=== PATIENT | female | born 1975 | race African-American/Black ===

== ENCOUNTER 2016-08-19 12:50 | Emergency (ER) | payer MEDICARE, MEDICAID ==
--- NOTE | 2016-08-19 13:27 | PHYS DOC ---
Past Medical History Past Medical History: Anxiety, CVA, High Cholesterol, Hypertension, Seizure Additional Past Medical Histor: blood clot in brain with Past Surgical History: Tubal ligation, Other Additional Past Surgical Histo: brain surgery 2002 Alcohol Use: None Drug Use: None Adult General Chief Complaint Chief Complaint: SEIZURE HPI HPI Patient is a 41 year old female who presents status post seizure. Patient is accompanied by her sister, who contributes to history. They both work he other; patient's sister says that she came into her office but was acting unusually and not speaking. She then had a seizure that lasted approximately 30-60 seconds. Sister called EMS. Patient was then postictal. She does have history of seizures, but does not take any antiepileptic medication. Of note, she says that she had been taking clonazepam for stress but ran out 1 month ago. While she was on the clonazepam she did not have any seizures. Patient says she feels generally poor at this time. Review of Systems Review of Systems Constitutional: Fatigue. Denies fever or chills Eyes: Denies change in visual acuity or eye pain HENT: Denies nasal congestion or sore throat Respiratory: Denies cough or shortness of breath Cardiovascular: Denies chest pain GI: Denies abdominal pain, nausea, vomiting, bloody stools or diarrhea : Denies dysuria or hematuria Musculoskeletal: Denies back pain or joint pain Integument: Denies rash or skin lesions Neurologic: Seizure, headache. Denies focal weakness or sensory changes Current Medications Current Medications Current Medications Medications (Trade) Dose Ordered Sig/Laura Start Time Stop Time Status Last Admin Dose Admin Acetaminophen (Tylenol) 1,000 mg 1X ONCE 08/19/16 14:30 08/19/16 14:33 DC 08/19/16 15:13 1,000 MG Lorazepam (Ativan) 1 mg 1X ONCE 08/19/16 13:45 08/19/16 13:46 DC 08/19/16 13:43 1 MG Sodium Chloride (Iv Sodium Chloride 0.9% 1000ml Bag) 1,000 ml @ 1,000 mls/hr 1X ONCE 08/19/16 13:45 08/19/16 14:44 DC 08/19/16 13:42 1,000 MLS/HR Allergies Allergies Allergies Coded Allergies Type Severity Reaction Last Updated Verified metoclopramide Allergy Severe Anaphylaxis 06/11/14 No morphine Allergy Intermediate itching 06/11/14 Yes Physical Exam Physical Exam Constitutional: Well developed, well nourished, no acute distress, non-toxic appearance HENT: Normocephalic, atraumatic, bilateral external ears normal Eyes: PERRL, EOMI, conjunctiva normal, no discharge Neck: Normal range of motion, no stridor Cardiovascular: Tachycardic, regular rhythm, no murmur Lungs & Thorax: Bilateral breath sounds clear to auscultation Abdomen: Bowel sounds normal, soft, non-distended, no TTP Skin: Warm, dry, no erythema, no rash Extremities: No obvious deformity, no edema Neurologic: Alert and oriented X 3, GCS 15, CN II-XII grossly intact, strength intact and symmetrical throughout, sensation to light touch intact throughout, no dystaxia noted Current Patient Data Vital Signs Vital Signs Date Time Temp Pulse Resp B/P Pulse Ox O2 Delivery O2 Flow Rate FiO2 08/19/16 16:15 88 20 127/78 100 08/19/16 15:27 Room Air 08/19/16 12:50 98.4 98.4 Lab Values Laboratory Tests Test 08/19/16 13:15 08/19/16 13:39 Urine Collection Type Unknown Urine Color Red Urine Clarity Cloudy Urine pH 6.0 Urine Specific [place] 1.020 Urine Protein 30mg/dL (NEG-TRACE) Urine Glucose (UA) Negativemg/dL (NEG) Urine Ketones (Stick) 15mg/dL (NEG) Urine Blood Large (NEG) Urine Nitrite Negative (NEG) Urine Bilirubin Negative (NEG) Urine Urobilinogen Dipstick 0.2mg/dL (0.2 mg/dL) Urine Leukocyte Esterase Moderate (NEG) Urine RBC Tntc/HPF (0-2) Urine WBC 5-10/HPF (0-4) Urine Squamous Epithelial Cells Few/LPF Urine Bacteria Moderate/HPF (0-FEW) Urine Mucus Mod/LPF Urine Test Negative (NEG) White Blood Count 6.5x10^3/uL (4.0-11.0) Red Blood Count 4.09x10^6/uL (3.50-5.40) Hemoglobin 11.6g/dL (12.0-15.5) L Hematocrit 36.5% (36.0-47.0) Mean Corpuscular Volume 89fL (79-100) Mean Corpuscular Hemoglobin 28pg (25-35) Mean Corpuscular Hemoglobin Concent 32g/dL (31-37) Red Cell Distribution Width 15.3% (11.5-14.5) H Platelet Count 445x10^3/uL (140-400) H Neutrophils (%) (Auto) 68% (31-73) Lymphocytes (%) (Auto) 25% (24-48) Monocytes (%) (Auto) 5% (0-9) Eosinophils (%) (Auto) 1% (0-3) Basophils (%) (Auto) 1% (0-3) Neutrophils # (Auto) 4.4x10^3uL (1.8-7.7) Lymphocytes # (Auto) 1.7x10^3/uL (1.0-4.8) Monocytes # (Auto) 0.3x10^3/uL (0.0-1.1) Eosinophils # (Auto) 0.1x10^3/uL (0.0-0.7) Basophils # (Auto) 0.1x10^3/uL (0.0-0.2) Sodium Level 140mmol/L (136-145) Potassium Level 3.6mmol/L (3.5-5.1) Chloride Level 102mmol/L (98-107) Carbon Dioxide Level 21mmol/L (21-32) Anion Gap 17 (6-14) H Blood Urea Nitrogen 12mg/dL (7-20) Creatinine 1.0mg/dL (0.6-1.0) Estimated GFR (Cockcroft-Gault) 73.9 Glucose Level 121mg/dL (70-99) H Calcium Level 9.3mg/dL (8.5-10.1) Magnesium Level 2.2mg/dL (1.8-2.4) Laboratory Tests 08/19/16 13:39 Laboratory Tests 08/19/16 13:39 EKG EKG EKG (my read): sinus tachycardia, rate 113, normal axis, no acute ischemic changes Radiology/Procedures Radiology/Procedures CT head: IMPRESSION: Chronic changes. No acute finding. No significant change Course & Med Decision Making Course & Med Decision Making Pertinent Labs and Imaging studies reviewed. (See chart for details) Patient is 41-year-old female who presents status post seizure. Has history of same; may be related to cessation of clonazepam one month ago. Initially post- ictal, mental status continues to improve while in ED. Will check labs, UA, CT head given c/o headache. IVF bolus, dose of ativan ordered. Labs largely unremarkable. UA bloody (patient on menstrual cycle) and has WBCs, few bacteria , leuk esterase; as she does not have any UTI symptoms I will not treat at this time and will instead await culture. CT head results as above. I discussed results with patient and family; patient feeling much improved at this time except for fatigue. Patient discharged home with rx for clonazepam; while she was in the ED her sister obtained an appt with her PCP for Monday. Patient discharged home with instructions for follow up and return precautions. Dragon Disclaimer Dragon Disclaimer This electronic medical record was generated, in whole or in part, using a voice recognition dictation system. Departure Departure Impression: Primary Impression: Seizure Disposition: HOME, SELF-CARE Condition: IMPROVED Referrals: NON,STAFF (PCP) Patient Instructions: Seizure, Adult Additional Instructions: Thank you for allowing us to provide care today in the Emergency Department. Take the provided medication as directed. Use caution when taking this medication as it can make you drowsy. Schedule a follow up appointment with your primary care doctor. Return promptly to the Emergency Department if you develop any new or concerning symptoms. Scripts Clonazepam 0.5 Mg Tablet0.5 Mg PO BID #20 TAB Prov:PAULINE CHAPPELL MD 08/19/16 PAULINE CHAPPELL MD Aug 19, 2016 13:27
--- NOTE | 2016-08-19 13:32 | EKG ---
[facility] [address] [place] [address] Test Date: 2016-08-19 Test Time: 13:15:48 Pat Name: JAQUAN PRYOR Department: Room: Gender: F Rn Medicare: : 1975 Requested By: PAULINE CHAPPELL Order Number: [id number] Reading MD: Delicia Alexander Measurements Intervals [place] Rate: 113 P: -100 FL: 90 QRS: 66 QRSD: 86 T: 33 QT: 350 QTc: 486 Interpretive Statements SINUS TACHYCARDIA OTHERWISE NORMAL ECG Electronically Signed On 08-22-2016 8:46:38 INSTITUTE DIRECTOR by Delicia Alexander
[2016-08-19 13:37] LABS: NEG OBC UR NEG; POS OBC UR POS
[2016-08-19 13:38] LABS: BILIRUBIN,URINE NEGATIVE (NEG); GLUCOSE,URINE NEGATIVE (NEG); NITRITE,URINE NEGATIVE (NEG); PROTEIN,URINE 30 mg/dL (NEG-TRACE); UROBILINOGEN,URINE 0.2 mg/dL (0.2 mg/dL)
[2016-08-19] MEDS ORDERED: LORAZEPAM 2 MG/ML VIAL IV ONE (13:45)
[2016-08-19] MEDS ORDERED: IV NORMAL SALINE 1000ML BAG 1,000 ML IV ONE (13:45)
[2016-08-19 13:47] LABS: BASO # 0.1 x10^3/uL (0.0-0.2); BASO % 1 % (0-3); EOS % 1 % (0-3); HEMATOCRIT 36.5 % (36.0-47.0); HEMOGLOBIN 11.6 g/dL (12.0-15.5); LYMPH # 1.7 x10^3/uL (1.0-4.8); LYMPH % 25 % (24-48); MEAN CORPUSCULAR HEMOGLOBIN 28 pg (25-35); MEAN CORPUSCULAR HGB CONC 32 g/dL (31-37); MEAN CORPUSCULAR VOLUME 89 fL (79-100); MONO % 5 % (0-9); NEUT % 68 % (31-73); PLATELET COUNT 445 x10^3/uL (140-400); RED BLOOD COUNT 4.09 x10^6/uL (3.50-5.40); RED CELL DISTRIBUTION WIDTH 15.3 % (11.5-14.5); WHITE BLOOD COUNT 6.5 x10^3/uL (4.0-11.0)
[2016-08-19 13:54] LABS: BACTERIA,URINE MODERATE /HPF (0-FEW); RBC,URINE TNTC /HPF (0-2); SQUAMOUS EPITHELIAL CELL,UR FEW /LPF
[2016-08-19 14:11] LABS: CALCIUM 9.3 mg/dL (8.5-10.1); GFR 73.9; MAGNESIUM 2.2 mg/dL (1.8-2.4); POTASSIUM 3.6 mmol/L (3.5-5.1)
[2016-08-19] MEDS ORDERED: ACETAMINOPHEN 500 MG TABLET PO ONE (14:30)
--- NOTE | 2016-08-19 15:18 | RAD ---
Indication history of a seizure. Headache. Noncontrast images of the head were obtained. Note is made of a previous examination 06/11/2014. The patient is status post left craniotomy. An acute calvarial finding is not seen. There is an aneurysm clip in the area of the [place] of [place] similar to the previous exam. There is an encephalomalacia area in the left parietal lobe also similar to the prior study. No subdural or epidural hematoma is seen. There is no mass or midline shift. An acute finding is not apparent. A significant change compared to the prior study is not seen. IMPRESSION: Chronic changes. No acute finding. No significant change PQRS Compliance Statement: One or more of the following individualized dose reduction techniques were utilized for this examination: 1. Automated exposure control 2. Adjustment of the mA and/or kV according to patient size 3. Use of iterative reconstruction technique
[2016-08-19] MEDS ORDERED: CLON0.5T3 PO (15:53)
[2016-08-19 16:15] VITALS: BP 127/78
== END 2016-08-19 16:48 | disposition home or self-care (01) ==
LOC: ER 12:50
DX: R56.9 Unspecified convulsions (principal); E78.00 Pure hypercholesterolemia, unspecified; I10 Essential (primary) hypertension; Z86.73 Personal history of transient ischemic attack (TIA), and cerebral infarction without residual deficits; Z88.5 Allergy status to narcotic agent; Z88.8 Allergy status to other drugs, medicaments and biological substances
CPT/HCPCS: 36415; 70450; 80048; 81001; 81025; 83735; 85027; 87086; 93005; 96361; 96374; 99285; J2060; J7030

== ENCOUNTER → 2016-10-06 | Outpatient (CLI) | payer MEDICARE, MEDICAID ==
[~2016-10-06] MED LIST: CLON0.5T3 PO
--- NOTE | 2016-10-12 21:12 | EEG ---
DATE OF SERVICE: 10/06/2016 EEG NUMBER: [id number] OBJECTIVE: This is a 41-year-old -[place] female patient with history of seizure or seizure-like episodes. EEG was requested to evaluate seizure activity. METHODS: Twenty electrodes were applied according to the international 10-20 electrode placement system. EKG monitoring, hyperventilation, intermittent photic stimulation, monopolar and bipolar montages are routinely utilized. The record was obtained on a digital system with video monitoring. FINDINGS: 1. Background: The patient was recorded in awake and drowsy states. No sleep state was recorded. The overall background amplitude is asymmetric higher in the left hemispheric area than the right hemispheric area, and it is about 20-40 microvolts in the left hemispherical area and 10-20 microvolts in the right hemispherical area. A posterior dominant rhythm of 8-10 Hz is observed. 2. Abnormalities: No specific epileptiform discharge or electrographic seizure is seen. No focal or diffuse slowing. 3. Activation: Hyperventilation was performed with good efforts and normal response. Intermittent photic stimulation was performed with photic driving. No specific epileptiform discharge or electrographic seizure induced by hyperventilation or intermittent photic stimulation. IMPRESSION: This EEG falls into the abnormal category of the study for the awake and drowsy states. No sleep state was recorded. The overall background amplitude is asymmetric higher in the left hemispheric area than the right hemispheric area that is in consistent with the patient's history of craniotomy. No specific epileptiform discharge or electrographic seizure is seen. ROSEMARY ESPINOSA MD DR: MARCELA/gaby JOB#: [id number] / [id number] KANDI
== END | disposition home or self-care (01) ==
LOC: RT 07:41
PROVIDERS: ATTEND Psychiatry & Neurology Neurology
DX: R56.9 Unspecified convulsions (principal)
CPT/HCPCS: 95816

== ENCOUNTER 2017-02-18 10:55 | Observation (INO) | payer MEDICARE, MEDICAID ==
[~2017-02-18] VITALS: Ht 157.5 cm; Wt 145.4 kg
--- NOTE | 2017-02-18 11:06 | PHYS DOC ---
Past Medical History Past Medical History: Anxiety, CVA, High Cholesterol, Hypertension, Seizure Additional Past Medical Histor: blood clot in brain with Past Surgical History: Tubal ligation, Other Additional Past Surgical Histo: brain surgery 2002 Alcohol Use: None Drug Use: None Adult General Chief Complaint Chief Complaint: NEURO SYMPTOMS/DEFICITS [facility] HPI Patient is a 41 year old -[place] female who presents with with right-sided facial numbness, right arm and leg numbness and weakness. She states it all started around 5 PM last night. She states been persistent. She also states she's been feeling nauseated and lightheaded and dizzy. She denies any vertigo type symptoms. She states last night she did have some vertigo symptoms but not today. She's also been having some loose stools and had 3 or 4 nonbloody loose stools this morning. She states that she is on 81 mg aspirin a day sure she took it this morning. 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 She also states last year she had a seizure that was related to stress. She states she seen Dr. Dorsey last her for her seizure. She denies any headache, neck stiffness, fever or chills abdominal pain. Review of Systems Review of Systems Constitutional: Denies fever or chills [] Eyes: Denies change in visual acuity, redness, or eye pain [] HENT: Denies nasal congestion or sore throat [] Respiratory: Denies cough or shortness of breath [] Cardiovascular: No additional information not addressed in HPI [] GI: Denies abdominal pain, nausea, vomiting, bloody stools or diarrhea [] : Denies dysuria or hematuria [] Musculoskeletal: Denies back pain or joint pain [] Integument: Denies rash or skin lesions [] Neurologic: Denies headache, positive for right-sided weakness and decreased sensation Endocrine: Denies polyuria or polydipsia [] Current Medications Current Medications Current Medications Medications (Trade) Dose Ordered Sig/Laura Start Time Stop Time Status Last Admin Dose Admin Ondansetron HCl (Zofran) 4 mg 1X ONCE 02/18/17 11:30 02/18/17 11:31 DC 02/18/17 11:57 4 MG Sodium Chloride 1,000 ml @ 1,000 mls/hr 1X ONCE 02/18/17 11:30 02/18/17 12:29 DC 02/18/17 11:57 1,000 MLS/HR Allergies Allergies Allergies Coded Allergies Type Severity Reaction Last Updated Verified metoclopramide Allergy Severe Anaphylaxis 06/11/14 No morphine Allergy Intermediate itching 06/11/14 Yes Physical Exam Physical Exam Constitutional: Well developed, well nourished, no acute distress, non-toxic appearance. [] HENT: Normocephalic, atraumatic, bilateral external ears normal, oropharynx moist, no oral exudates, nose normal. [] Eyes: PERRLA, EOMI, conjunctiva normal, no discharge. [] Neck: Normal range of motion, no tenderness, supple, no stridor. [] Cardiovascular:Heart rate regular rhythm, no murmur [] Lungs & Thorax: Bilateral breath sounds clear to auscultation [] Abdomen: Bowel sounds normal, soft, no tenderness, no masses, no pulsatile masses. [] Skin: Warm, dry, no erythema, no rash. [] Back: No tenderness, no CVA tenderness. [] Extremities: No tenderness, no cyanosis, no clubbing, ROM intact, no edema. [] Neurologic: Alert and oriented X 3, 4-5 strength in the right upper and lower extremity, decreased sensation to the right upper and lower extremity and face Psychologic: Affect normal, judgement normal, mood normal. [] Current Patient Data Vital Signs Vital Signs Date Time Temp Pulse Resp B/P (MAP) Pulse Ox O2 Delivery O2 Flow Rate FiO2 02/18/17 11:05 99.2 114 16 146/85 (105) 98 Room Air 99.2 Lab Values Laboratory Tests Test 02/18/17 11:20 02/18/17 11:42 White Blood Count 5.2 x10^3/uL (4.0-11.0) Red Blood Count 3.88 x10^6/uL (3.50-5.40) Hemoglobin 11.4 g/dL (12.0-15.5) L Hematocrit 33.7 % (36.0-47.0) L Mean Corpuscular Volume 87 fL (79-100) Mean Corpuscular Hemoglobin 29 pg (25-35) Mean Corpuscular Hemoglobin Concent 34 g/dL (31-37) Red Cell Distribution Width 14.0 % (11.5-14.5) Platelet Count 467 x10^3/uL (140-400) H Neutrophils (%) (Auto) 73 % (31-73) Lymphocytes (%) (Auto) 20 % (24-48) L Monocytes (%) (Auto) 6 % (0-9) Eosinophils (%) (Auto) 1 % (0-3) Basophils (%) (Auto) 1 % (0-3) Neutrophils # (Auto) 3.8 x10^3uL (1.8-7.7) Lymphocytes # (Auto) 1.0 x10^3/uL (1.0-4.8) Monocytes # (Auto) 0.3 x10^3/uL (0.0-1.1) Eosinophils # (Auto) 0.0 x10^3/uL (0.0-0.7) Basophils # (Auto) 0.0 x10^3/uL (0.0-0.2) Prothrombin Time 12.8 SEC (11.7-14.0) Prothrombin Time INR 1.0 (0.8-1.1) PTT 29 SEC (24-38) Fibrinogen 346 mg/dL (200-440) Sodium Level 142 mmol/L (136-145) Potassium Level 3.6 mmol/L (3.5-5.1) Chloride Level 106 mmol/L (98-107) Carbon Dioxide Level 27 mmol/L (21-32) Anion Gap 9 (6-14) Blood Urea Nitrogen 14 mg/dL (7-20) Creatinine 0.9 mg/dL (0.6-1.0) Estimated GFR (Cockcroft-Gault) 83.5 Glucose Level 133 mg/dL (70-99) H Calcium Level 8.7 mg/dL (8.5-10.1) Total Bilirubin 0.2 mg/dL (0.2-1.0) Direct Bilirubin 0.1 mg/dL (0.0-0.2) Aspartate Amino Transferase (AST) 17 U/L (15-37) Alanine Aminotransferase (ALT) 22 U/L (14-59) Alkaline Phosphatase 49 U/L (46-116) Total Protein 7.6 g/dL (6.4-8.2) Albumin 3.6 g/dL (3.4-5.0) Glucose (Fingerstick) 115 mg/dL (70-99) H Laboratory Tests 02/18/17 11:20 Laboratory Tests 02/18/17 11:20 EKG EKG EKG shows sinus rhythm with rate of [address] elevations or T-wave inversions appreciated, normal axis, QTC 413 ms, as interpreted by me. Radiology/Procedures Radiology/Procedures [facility] [address] [place] [address] IMAGING REPORT Signed PATIENT: JAQUAN PRYOR ACCOUNT: [id number] : 1975 LOCATION: ER AGE: 41 SEX: F EXAM STATUS: PRE ER ORD. PHYSICIAN: MARGARET DUGAN MD REASON: stroke protocol PROCEDURE: CT CODE STROKE HEAD WO CT head without contrast History: Right-sided numbness, speech difficulty Comparison: 08/19/2016. Procedure: Axial images are obtained of the head from the skull base through the vertex without IV contrast. Findings: Changes of left parietal craniotomy. Aneurysm clip identified in the region of [place] of [place] similar to prior exam. Small focus of encephalomalacia identified in the left parietal lobe similar to prior exam. The ventricles and sulci are normal for the patient's age. No mass-effect, intracranial mass, midline shift, hemorrhage or obvious acute infarction is identified. Basilar cisterns are patent. . The visualized paranasal sinuses appear clear. Impression: 1. No acute intracranial process. ER physician informed at time of dictation. PQRS Compliance Statement: One or more of the following individualized dose reduction techniques were utilized for this examination: 1. Automated exposure control 2. Adjustment of the mA and/or kV according to patient size 3. Use of iterative reconstruction technique faint DICTATED and SIGNED BY: WOO TORRES MD DATE: 02/18/17 1140 CC: MELVA LACY; MARGARET DUGAN MD ~ Impressions: Right arm, leg weakness Right Arm and leg decreased sensation Course & Med Decision Making Course & Med Decision Making Pertinent Labs and Imaging studies reviewed. (See chart for details) CT scan of the head did not show any acute abnormality's. Labs are nonacute. We are waiting a urine at this time. Spoke with Dr. Quiles with neurology and informed him of her symptoms, duration of symptoms since 5 PM, her past medical history, her previous craniotomy and coiling. I have started the patient on 325 aspirin and ordered an MRI of her brain. She's being admitted to Dr. Julian in stable condition at this time. Interim orders have been written. Dragon Disclaimer Dragon Disclaimer This electronic medical record was generated, in whole or in part, using a voice recognition dictation system. Departure Departure Impression: Primary Impression: Right sided weakness Disposition: ADMITTED INPATIENT Admitting Physician: Jose J Julian Condition: STABLE Referrals: MELVA LACY (PCP) MARGARET DUGAN MD Feb 18, 2017 11:06
[2017-02-18] MEDS ORDERED: ONDANSETRON PF 4 MG/2 ML VIAL. IV ONE (11:30)
[2017-02-18] MEDS ORDERED: IV NORMAL SALINE 1000ML BAG 1,000 ML IV ONE (11:30)
[2017-02-18 11:42] LABS: BASO % 1 % (0-3); EOS % 1 % (0-3); HEMATOCRIT 33.7 % (36.0-47.0); HEMOGLOBIN 11.4 g/dL (12.0-15.5); LYMPH % 20 % (24-48); MEAN CORPUSCULAR HEMOGLOBIN 29 pg (25-35); MEAN CORPUSCULAR HGB CONC 34 g/dL (31-37); MEAN CORPUSCULAR VOLUME 87 fL (79-100); MONO % 6 % (0-9); NEUT % 73 % (31-73); PLATELET COUNT 467 x10^3/uL (140-400); RED BLOOD COUNT 3.88 x10^6/uL (3.50-5.40); WHITE BLOOD COUNT 5.2 x10^3/uL (4.0-11.0)
--- NOTE | 2017-02-18 11:42 | EKG ---
[facility] [address] [place] [address] Test Date: 2017-02-18 Test Time: 11:21:25 Pat Name: JAQUAN PRYOR Department: Room: Gender: F Gut Cleaner: : 1975 Requested By: MARGARET DUGAN Order Number: [id number] Reading MD: Measurements Intervals [place] Rate: 99 P: 41 OR: 106 QRS: 47 QRSD: 80 T: 47 QT: 318 QTc: 413 Interpretive Statements SINUS RHYTHM NON SPECIFIC T ABNORMALITY RI6.01 Unconfirmed report No previous ECG available for comparison
--- NOTE | 2017-02-18 11:47 | RAD ---
CT head without contrast History: Right-sided numbness, speech difficulty Comparison: 08/19/2016. Procedure: Axial images are obtained of the head from the skull base through the vertex without IV contrast. Findings: Changes of left parietal craniotomy. Aneurysm clip identified in the region of [place] of [place] similar to prior exam. Small focus of encephalomalacia identified in the left parietal lobe similar to prior exam. The ventricles and sulci are normal for the patient's age. No mass-effect, intracranial mass, midline shift, hemorrhage or obvious acute infarction is identified. Basilar cisterns are patent. . The visualized paranasal sinuses appear clear. Impression: 1. No acute intracranial process. ER physician informed at time of dictation. PQRS Compliance Statement: One or more of the following individualized dose reduction techniques were utilized for this examination: 1. Automated exposure control 2. Adjustment of the mA and/or kV according to patient size 3. Use of iterative reconstruction technique faint
[2017-02-18 11:48] LABS: CALCIUM 8.7 mg/dL (8.5-10.1); CREATININE 0.9 mg/dL (0.6-1.0); GFR 83.5; POTASSIUM 3.6 mmol/L (3.5-5.1)
[2017-02-18 11:54] LABS: ALBUMIN 3.6 g/dL (3.4-5.0); DIRECT BILIRUBIN 0.1 mg/dL (0.0-0.2); TOTAL BILIRUBIN 0.2 mg/dL (0.2-1.0); TOTAL PROTEIN 7.6 g/dL (6.4-8.2)
[2017-02-18 11:58] LABS: PROTHROMBIN TIME PATIENT 12.8 SEC (11.7-14.0)
[2017-02-18] MEDS ORDERED: ONDANSETRON PF 4 MG/2 ML VIAL. IV PRN (12:45)
[2017-02-18] MEDS ORDERED: ASPIRIN 325 MG TABLET PO ONE (12:50)
[2017-02-18] MEDS ORDERED: CLON0.1T TOP (13:34)
[2017-02-18] MEDS ORDERED: FLUO20CA8 PO (13:34)
[2017-02-18] MEDS ORDERED: LISI10TA2 PO (13:34)
[2017-02-18] MEDS ORDERED: ASPI-482 PO (13:34)
[2017-02-18 13:45] VITALS: BP 120/82
--- NOTE | 2017-02-18 15:49 | PDOC2 ---
NEUROLOGY CONSULT Date of Admission Date of Admission DATE: 02/18/17 TIME: 15:40 Reason for consultation New onset right-sided weakness and numbness History of present illness Yolis Thomson is a pleasant 41-year-old woman who had a hemorrhagic stroke 14 years ago with the of her son. This was in the left hemisphere and caused right-sided symptoms which eventually resolved. She reports she had a craniotomy. She also had an aneurysm coil but it sounds like he did not rupture. She is done fairly well in the interim. Yesterday she was driving and became very dizzy. She stopped at [employer]. She felt like she would almost faint. She went into the store and noticed her right side was numb. This lasted all night long. She was nauseated and having a spinning sensation. The numbness persisted today and she was having diarrhea as well. This has not been associated with any fever. Several days ago she woke up feeling like she was having a seizure. She previously was evaluated by Dr. Dorsey, a neurologist, where an EEG was negative. She was placed on levetiracetam but experienced adverse effects with suicidal thoughts so discontinued the medication. It is not clear that these actually had a definite seizure. She describes spells at night rib feels like her eyes are jerky but she is awake during the spell. She's also been experiencing daily headache although does not have much of a headache today. She's had palpitations and then has anxiety attacks. She is been using Klonopin on a daily basis but the anxiety is not controlled. Past medical history 1. Generalized anxiety disorder 2. History of stroke 3. Hyperlipidemia 4. Hypertension 5. Seizure 6. History of blood clot associated with childbirth 7. Tubal ligation 8. Brain surgery 2002 9. Suicidal thoughts associated with taking Keppra Family history Hypertension, high cholesterol, cancer and diabetes run in the family. Social history She has a boyfriend at bedside with him she's been with for 2 months. She has 3 sons age 21 down to 14 years. Her 18-year-old son is preparing to go to college. Her 21-year-old son works and goes to school. She is a lifelong nonsmoker. She drinks occasional glasses of wine. She denies recreational drugs. She does not work and is on disability. Current Medications Current Medications Current Medications Ondansetron HCl (Zofran) 4 mg 1X ONCE IV Last administered on 02/18/17 11:57; Start 02/18/17 at 11:30; Stop 02/18/17 at 11:31; Status DC Sodium Chloride 1,000 ml @ 1,000 mls/hr 1X ONCE IV Last administered on 11:57; Start 02/18/17 at 11:30; Stop 02/18/17 at 12:29; Status DC Ondansetron HCl (Zofran) 4 mg PRN Q8HRS PRN IV NAUSEA/VOMITING; Start 02/18/17 at 12:45; Stop 02/19/17 at 12:44 Aspirin (Mirza Aspirin) 325 mg 1X ONCE PO Last administered on 02/18/17 13:03 ; Start 02/18/17 at 12:50; Stop 02/18/17 at 12:51; Status DC Active Scripts Active Clonazepam 0.5 Mg Tablet 0.5 Mg PO BID Reported Aspir 81 (Aspirin) 81 Mg Tablet.dr 1 Tab PO DAILY Lisinopril 10 Mg Tablet 1 Tab PO DAILY Fluoxetine Hcl 20 Mg Capsule 60 Mg PO DAILY Clonidine Hcl 0.1 Mg Tablet 0.2 Mg TOP CHANGE EVERY MONDAY Allergies Allergies: Coded Allergies: metoclopramide (Unverified Allergy, Severe, Anaphylaxis, 06/11/14) morphine (Verified Allergy, Intermediate, itching, 06/11/14) ROS Review of System She has been experiencing daily headache although does not have a headache today. She's had dizziness. There's been no loss of hearing or vision. She does not have nose or sinus difficulty. She feels she is having trouble getting out her thoughts. She's been able to eat and swallow. She did have diarrhea earlier. She's had some nausea. She has not had shortness of breath, cough or cold. There is no chest or abdominal pain. She does not have any bone or joint pain. She has not had fever or rash. She does not have any genitourinary complaints. She complains of right-sided numbness involving face, arm and leg. She feels her right side is weakened. She has anxiety and panic attacks. She has been under much more stress lately. She does not complain of swelling, bruising or bleeding. Physical Exam Physical Examination She was alert, awake and cooperative. The speech was fluent and clear. She had intermittent difficulty getting out her thoughts but other time she was quite fluent. She had a good fund of recent and remote knowledge. Attention and concentration was intact. She was well-groomed and well-nourished. She was fully oriented. Examination of the cranial nerves revealed visual medrano were full to confrontation. Extraocular movements were intact. The eyes were conjugate. Pursuit movements were smooth and saccadic movements were without dysmetria. The pupils were 4 millimeters and reacted to light. There was no afferent pupillary defect. Funduscopic examination did not reveal papilledema, exudate or hemorrhage. Facial sensation was intact. The muscles of mastication and facial expression were powerful symmetrically. Hearing was intact to finger rub. The palate arch symmetrically and the tongue was midline with full range of motion. Sternocleidomastoid and trapezius were powerful bilaterally. Muscle bulk and tone was normal. There was no arm drift or abnormal movement. The power was full and symmetric in the upper and lower extremities with give way weakness on the right side. The power fluctuated greatly on the right side. Reflexes were 2/4 and symmetric in the upper and lower extremities. The toes were downgoing bilaterally. Coordination testing with finger to nose, heel to maxwell, fine motor and rapid alternating movements was well performed except right [id number] was diminished. The sensory examination was intact to pain, light touch, proprioception, graphesthesia, cold thermal and vibration except for subjective sensory shading on the right. There was no extinction to double simultaneous stimulation. The gait was of a normal base and unsteady walk. She was able to heel, toe, and tandem walk. The Romberg stance was negative. Auscultation of the carotid arteries did not reveal a bruit. Heart rhythm was regular without a murmur. Peripheral pulses are 2/4 at the wrists and feet. There was no edema or cyanosis of the extremities. Vitals VITALS Vital Signs Date Time Temp Pulse Resp B/P (MAP) Pulse Ox O2 Delivery O2 Flow Rate FiO2 02/18/17 15:04 Room Air 02/18/17 13:45 99.9 84 16 120/82 (95) 100 99.9 Labs Labs Laboratory Tests Test 02/18/17 11:20 02/18/17 11:42 White Blood Count 5.2 x10^3/uL (4.0-11.0) Red Blood Count 3.88 x10^6/uL (3.50-5.40) Hemoglobin 11.4 g/dL (12.0-15.5) Hematocrit 33.7 % (36.0-47.0) Mean Corpuscular Volume 87 fL (79-100) Mean Corpuscular Hemoglobin 29 pg (25-35) Mean Corpuscular Hemoglobin Concent 34 g/dL (31-37) Red Cell Distribution Width 14.0 % (11.5-14.5) Platelet Count 467 x10^3/uL (140-400) Neutrophils (%) (Auto) 73 % (31-73) Lymphocytes (%) (Auto) 20 % (24-48) Monocytes (%) (Auto) 6 % (0-9) Eosinophils (%) (Auto) 1 % (0-3) Basophils (%) (Auto) 1 % (0-3) Neutrophils # (Auto) 3.8 x10^3uL (1.8-7.7) Lymphocytes # (Auto) 1.0 x10^3/uL (1.0-4.8) Monocytes # (Auto) 0.3 x10^3/uL (0.0-1.1) Eosinophils # (Auto) 0.0 x10^3/uL (0.0-0.7) Basophils # (Auto) 0.0 x10^3/uL (0.0-0.2) Prothrombin Time 12.8 SEC (11.7-14.0) Prothromb Time International Ratio 1.0 (0.8-1.1) Activated Partial Thromboplast Time 29 SEC (24-38) Fibrinogen 346 mg/dL (200-440) Sodium Level 142 mmol/L (136-145) Potassium Level 3.6 mmol/L (3.5-5.1) Chloride Level 106 mmol/L (98-107) Carbon Dioxide Level 27 mmol/L (21-32) Anion Gap 9 (6-14) Blood Urea Nitrogen 14 mg/dL (7-20) Creatinine 0.9 mg/dL (0.6-1.0) Estimated GFR (Cockcroft-Gault) 83.5 Glucose Level 133 mg/dL (70-99) Calcium Level 8.7 mg/dL (8.5-10.1) Total Bilirubin 0.2 mg/dL (0.2-1.0) Direct Bilirubin 0.1 mg/dL (0.0-0.2) Aspartate Amino Transf (AST/SGOT) 17 U/L (15-37) Alanine Aminotransferase (ALT/SGPT) 22 U/L (14-59) Alkaline Phosphatase 49 U/L (46-116) Total Protein 7.6 g/dL (6.4-8.2) Albumin 3.6 g/dL (3.4-5.0) Glucose (Fingerstick) 115 mg/dL (70-99) Laboratory Tests Test 02/18/17 11:20 02/18/17 11:42 White Blood Count 5.2 x10^3/uL (4.0-11.0) Red Blood Count 3.88 x10^6/uL (3.50-5.40) Hemoglobin 11.4 g/dL (12.0-15.5) Hematocrit 33.7 % (36.0-47.0) Mean Corpuscular Volume 87 fL (79-100) Mean Corpuscular Hemoglobin 29 pg (25-35) Mean Corpuscular Hemoglobin Concent 34 g/dL (31-37) Red Cell Distribution Width 14.0 % (11.5-14.5) Platelet Count 467 x10^3/uL (140-400) Neutrophils (%) (Auto) 73 % (31-73) Lymphocytes (%) (Auto) 20 % (24-48) Monocytes (%) (Auto) 6 % (0-9) Eosinophils (%) (Auto) 1 % (0-3) Basophils (%) (Auto) 1 % (0-3) Neutrophils # (Auto) 3.8 x10^3uL (1.8-7.7) Lymphocytes # (Auto) 1.0 x10^3/uL (1.0-4.8) Monocytes # (Auto) 0.3 x10^3/uL (0.0-1.1) Eosinophils # (Auto) 0.0 x10^3/uL (0.0-0.7) Basophils # (Auto) 0.0 x10^3/uL (0.0-0.2) Prothrombin Time 12.8 SEC (11.7-14.0) Prothromb Time International Ratio 1.0 (0.8-1.1) Activated Partial Thromboplast Time 29 SEC (24-38) Fibrinogen 346 mg/dL (200-440) Sodium Level 142 mmol/L (136-145) Potassium Level 3.6 mmol/L (3.5-5.1) Chloride Level 106 mmol/L (98-107) Carbon Dioxide Level 27 mmol/L (21-32) Anion Gap 9 (6-14) Blood Urea Nitrogen 14 mg/dL (7-20) Creatinine 0.9 mg/dL (0.6-1.0) Estimated GFR (Cockcroft-Gault) 83.5 Glucose Level 133 mg/dL (70-99) Calcium Level 8.7 mg/dL (8.5-10.1) Total Bilirubin 0.2 mg/dL (0.2-1.0) Direct Bilirubin 0.1 mg/dL (0.0-0.2) Aspartate Amino Transf (AST/SGOT) 17 U/L (15-37) Alanine Aminotransferase (ALT/SGPT) 22 U/L (14-59) Alkaline Phosphatase 49 U/L (46-116) Total Protein 7.6 g/dL (6.4-8.2) Albumin 3.6 g/dL (3.4-5.0) Glucose (Fingerstick) 115 mg/dL (70-99) Assessment/Plan Assessment/Plan Ricarda Thomson is a pleasant 41-year-old woman who previously suffered with an intracranial hemorrhage associated with childbirth. It sounds as if she required surgical intervention. She also had coiling of an aneurysm. It does not sound as if the aneurysm actually ever ruptured. I feel the current neurologic symptoms are likely due to stress and not stroke or a new intracranial process. I'm relieved that the CT scan of the head was negative. I will arrange for an MRI of the brain to evaluate for acute stroke as well as an MRA of the intracranial arteries to evaluate for the development of new aneurysm. If these are negative then I would switch the emphasis to treating the anxiety disorder. She may need to work with a psychiatrist as Klonopin and Prozac do not seem to be effective at controlling the symptoms. She may be well served by working with a counselor as well. I will be happy to reevaluate. I appreciate being involved in her care. LINDA MAGALLON MD Feb 18, 2017 15:49
[2017-02-18] MEDS ORDERED: CLON1PAT2 TD (17:05)
[2017-02-18] MEDS: clonazePAM 0.5 MG TABLET PO SCH (17:46)
[2017-02-18] MEDS: LISINOPRIL 10 MG TABLET PO SCH (17:46)
[2017-02-18] MEDS: FLUoxetine HCL 20 MG CAPSULE PO SCH (17:46)
[2017-02-18 19:00] VITALS: BP 125/79
--- NOTE | 2017-02-18 19:49 | PDOC1 ---
History and Physical Date of Admission Date of Admission DATE: 02/18/17 TIME: 19:46 History of Present Illness History of Present Illness Young female with prior h/o CVA after childberth. She has a coil. Now co R weakness. ?New CVA? DW ER doc Reviewed chart and labs and imaging. Pt seen and examined Plan is to admit for neuro consult and possibly more imaging Dictation still broken Total time 34 minutes Past medical history 1. Generalized anxiety disorder 2. History of stroke 3. Hyperlipidemia 4. Hypertension 5. Seizure 6. History of blood clot associated with childbirth 7. Tubal ligation 8. Brain surgery 2002 9. Suicidal thoughts associated with taking Keppra Current Problem List Problem List Problems Medical Problems: (1) Right sided weakness Status: Acute Problems: Current Medications Current Medications Current Medications Ondansetron HCl (Zofran) 4 mg 1X ONCE IV Last administered on 02/18/17 11:57; Start 02/18/17 at 11:30; Stop 02/18/17 at 11:31; Status DC Sodium Chloride 1,000 ml @ 1,000 mls/hr 1X ONCE IV Last administered on 11:57; Start 02/18/17 at 11:30; Stop 02/18/17 at 12:29; Status DC Ondansetron HCl (Zofran) 4 mg PRN Q8HRS PRN IV NAUSEA/VOMITING; Start 02/18/17 at 12:45; Stop 02/19/17 at 12:44 Aspirin (Mirza Aspirin) 325 mg 1X ONCE PO Last administered on 02/18/17 13:03 ; Start 02/18/17 at 12:50; Stop 02/18/17 at 12:51; Status DC Aspirin (Ecotrin) 81 mg DAILY PO ; Start 02/19/17 at 09:00 Clonazepam (KlonoPIN) 0.5 mg BID PO Last administered on 02/18/17 17:46; Start 02/18/17 at 17:30 Fluoxetine HCl (PROzac) 60 mg DAILY PO Last administered on 02/18/17 17:46; Start 02/18/17 at 17:30 Lisinopril (Prinivil) 10 mg DAILY PO Last administered on 02/18/17 17:46; Start 02/18/17 at 17:30 Clonidine HCl (Catapres Tts-2) 1 patch WEEKLY TD ; Start 02/25/17 at 09:00 Active Scripts Active Clonazepam 0.5 Mg Tablet 0.5 Mg PO BID Reported Clonidine Tts-2 (Clonidine) 1 Each Patch.tdwk 1 Patch TD WEEKLY Aspir 81 (Aspirin) 81 Mg Tablet.dr 1 Tab PO DAILY Lisinopril 10 Mg Tablet 1 Tab PO DAILY Fluoxetine Hcl 20 Mg Capsule 60 Mg PO DAILY Allergies Allergies: Coded Allergies: metoclopramide (Unverified Allergy, Severe, Anaphylaxis, 06/11/14) morphine (Verified Allergy, Intermediate, itching, 06/11/14) Vitals Vitals Vital Signs Date Time Temp Pulse Resp B/P (MAP) Pulse Ox O2 Delivery O2 Flow Rate FiO2 02/18/17 17:46 84 120/82 02/18/17 15:04 Room Air 02/18/17 13:45 99.9 16 100 99.9 Labs Labs Laboratory Tests Test 02/18/17 11:20 02/18/17 11:42 White Blood Count 5.2 x10^3/uL (4.0-11.0) Red Blood Count 3.88 x10^6/uL (3.50-5.40) Hemoglobin 11.4 g/dL (12.0-15.5) Hematocrit 33.7 % (36.0-47.0) Mean Corpuscular Volume 87 fL (79-100) Mean Corpuscular Hemoglobin 29 pg (25-35) Mean Corpuscular Hemoglobin Concent 34 g/dL (31-37) Red Cell Distribution Width 14.0 % (11.5-14.5) Platelet Count 467 x10^3/uL (140-400) Neutrophils (%) (Auto) 73 % (31-73) Lymphocytes (%) (Auto) 20 % (24-48) Monocytes (%) (Auto) 6 % (0-9) Eosinophils (%) (Auto) 1 % (0-3) Basophils (%) (Auto) 1 % (0-3) Neutrophils # (Auto) 3.8 x10^3uL (1.8-7.7) Lymphocytes # (Auto) 1.0 x10^3/uL (1.0-4.8) Monocytes # (Auto) 0.3 x10^3/uL (0.0-1.1) Eosinophils # (Auto) 0.0 x10^3/uL (0.0-0.7) Basophils # (Auto) 0.0 x10^3/uL (0.0-0.2) Prothrombin Time 12.8 SEC (11.7-14.0) Prothromb Time International Ratio 1.0 (0.8-1.1) Activated Partial Thromboplast Time 29 SEC (24-38) Fibrinogen 346 mg/dL (200-440) Sodium Level 142 mmol/L (136-145) Potassium Level 3.6 mmol/L (3.5-5.1) Chloride Level 106 mmol/L (98-107) Carbon Dioxide Level 27 mmol/L (21-32) Anion Gap 9 (6-14) Blood Urea Nitrogen 14 mg/dL (7-20) Creatinine 0.9 mg/dL (0.6-1.0) Estimated GFR (Cockcroft-Gault) 83.5 Glucose Level 133 mg/dL (70-99) Calcium Level 8.7 mg/dL (8.5-10.1) Total Bilirubin 0.2 mg/dL (0.2-1.0) Direct Bilirubin 0.1 mg/dL (0.0-0.2) Aspartate Amino Transf (AST/SGOT) 17 U/L (15-37) Alanine Aminotransferase (ALT/SGPT) 22 U/L (14-59) Alkaline Phosphatase 49 U/L (46-116) Total Protein 7.6 g/dL (6.4-8.2) Albumin 3.6 g/dL (3.4-5.0) Glucose (Fingerstick) 115 mg/dL (70-99) Laboratory Tests Test 02/18/17 11:20 02/18/17 11:42 White Blood Count 5.2 x10^3/uL (4.0-11.0) Red Blood Count 3.88 x10^6/uL (3.50-5.40) Hemoglobin 11.4 g/dL (12.0-15.5) Hematocrit 33.7 % (36.0-47.0) Mean Corpuscular Volume 87 fL (79-100) Mean Corpuscular Hemoglobin 29 pg (25-35) Mean Corpuscular Hemoglobin Concent 34 g/dL (31-37) Red Cell Distribution Width 14.0 % (11.5-14.5) Platelet Count 467 x10^3/uL (140-400) Neutrophils (%) (Auto) 73 % (31-73) Lymphocytes (%) (Auto) 20 % (24-48) Monocytes (%) (Auto) 6 % (0-9) Eosinophils (%) (Auto) 1 % (0-3) Basophils (%) (Auto) 1 % (0-3) Neutrophils # (Auto) 3.8 x10^3uL (1.8-7.7) Lymphocytes # (Auto) 1.0 x10^3/uL (1.0-4.8) Monocytes # (Auto) 0.3 x10^3/uL (0.0-1.1) Eosinophils # (Auto) 0.0 x10^3/uL (0.0-0.7) Basophils # (Auto) 0.0 x10^3/uL (0.0-0.2) Prothrombin Time 12.8 SEC (11.7-14.0) Prothromb Time International Ratio 1.0 (0.8-1.1) Activated Partial Thromboplast Time 29 SEC (24-38) Fibrinogen 346 mg/dL (200-440) Sodium Level 142 mmol/L (136-145) Potassium Level 3.6 mmol/L (3.5-5.1) Chloride Level 106 mmol/L (98-107) Carbon Dioxide Level 27 mmol/L (21-32) Anion Gap 9 (6-14) Blood Urea Nitrogen 14 mg/dL (7-20) Creatinine 0.9 mg/dL (0.6-1.0) Estimated GFR (Cockcroft-Gault) 83.5 Glucose Level 133 mg/dL (70-99) Calcium Level 8.7 mg/dL (8.5-10.1) Total Bilirubin 0.2 mg/dL (0.2-1.0) Direct Bilirubin 0.1 mg/dL (0.0-0.2) Aspartate Amino Transf (AST/SGOT) 17 U/L (15-37) Alanine Aminotransferase (ALT/SGPT) 22 U/L (14-59) Alkaline Phosphatase 49 U/L (46-116) Total Protein 7.6 g/dL (6.4-8.2) Albumin 3.6 g/dL (3.4-5.0) Glucose (Fingerstick) 115 mg/dL (70-99) VTE Prophylaxis Ordered VTE Prophylaxis Devices: Yes VTE Pharmacological Prophylaxi: Yes BORA DUMONT III, DO Feb 18, 2017 19:48
[2017-02-18] MEDS: ACETAMINOPHEN 500 MG TABLET PO PRN (20:35)
[2017-02-18 23:00] VITALS: BP 114/79
[2017-02-19] MEDS ORDERED: clonazePAM 0.5 MG TABLET PO ONE (02:30)
[2017-02-19 03:00] VITALS: BP 131/85
[2017-02-19 06:58] LABS: BASO % 1 % (0-3); EOS % 3 % (0-3); HEMOGLOBIN 10.1 g/dL (12.0-15.5); LYMPH # 1.6 x10^3/uL (1.0-4.8); LYMPH % 36 % (24-48); MEAN CORPUSCULAR HEMOGLOBIN 29 pg (25-35); MEAN CORPUSCULAR HGB CONC 33 g/dL (31-37); MEAN CORPUSCULAR VOLUME 89 fL (79-100); MONO % 8 % (0-9); NEUT % 52 % (31-73); PLATELET COUNT 361 x10^3/uL (140-400); RED BLOOD COUNT 3.47 x10^6/uL (3.50-5.40); RED CELL DISTRIBUTION WIDTH 14.4 % (11.5-14.5); WHITE BLOOD COUNT 4.5 x10^3/uL (4.0-11.0)
[2017-02-19 07:08] LABS: CALCIUM 8.5 mg/dL (8.5-10.1); CREATININE 0.7 mg/dL (0.6-1.0); GFR 111.6; POTASSIUM 3.6 mmol/L (3.5-5.1)
[2017-02-19 07:28] VITALS: BP 107/71
[2017-02-19] MEDS: LISINOPRIL 10 MG TABLET PO SCH (08:55)
[2017-02-19] MEDS: clonazePAM 0.5 MG TABLET PO SCH ×3 (08:56→21:03)
[2017-02-19] MEDS: ASPIRIN ENTERIC COATED 81 MG TABLET.DR. PO SCH (08:56)
[2017-02-19] MEDS: ACETAMINOPHEN 500 MG TABLET PO PRN ×2 (08:56→13:51)
[2017-02-19] MEDS: FLUoxetine HCL 20 MG CAPSULE PO SCH (08:56)
--- NOTE | 2017-02-19 11:57 | RAD ---
MRI brain without contrast. Intracranial MR angiogram without contrast. COMPARISON: CT head March 02. TECHNIQUE: Axial 3-D [id number] and 3-D MIP reconstructions of the intracranial arteries acquired characterize vascular anatomy and pathology. Multiplanar MRI sequences of the brain were acquired without contrast. HISTORY: Right-sided weakness, numbness and tingling, history of aneurysm coil embolization 10 years ago. MRI brain findings: Susceptibility artifact on the diffusion sequence related to prior left craniotomy may decrease sensitivity to detect subtle pathology along the surfaces of the frontal and parietal lobes. In light of this there is no acute infarct or diffusion weighted signal abnormality of the brain evident. Focal encephalomalacia of the left lateral temporal lobe and underlying white matter T2 weighted hyperintensity consistent with chronic injury and ex vacuo dilation of the left atrium similar to prior CT imaging likely due to an old ischemic injury or sequela of an old hemorrhage although no significant susceptibility artifact is present to suggest the presence of hemosiderin from old hemorrhage. The vertebral and basilar arteries are hypoplastic likely due to physiology. 3 mm pineal cyst. Asymmetric hypointensity at the left supraclinoid internal carotid artery likely related to the patient's embolized aneurysm. No intracranial hemorrhage, mass or hydrocephalus. Orbits, paranasal sinuses and mastoids are unremarkable. IMPRESSION: No acute abnormality. Encephalomalacia of the left lateral temporal lobe likely due to an old ischemic injury or old hemorrhage. See discussion above. Intracranial MRA angiogram findings: There is less flow related enhancement of the left anterior cavernous carotid artery related to a covered stent and susceptibility about the periphery of the supraclinoid left internal carotid related to coil embolization of the patient's aneurysm no flow related enhancement of the aneurysm sac evident. type bilateral posterior cerebral arteries. The vertebral and basilar arteries are hypoplastic. No arterial occlusion or stenosis. IMPRESSION: Treatment of a left supraclinoid internal carotid artery aneurysm, no flow related enhancement of the embolized aneurysm sac. physiology posterior cerebral arteries. No stenosis or occlusion. Electronically signed by: Matthieu Green MD (02/19/2017 11:53 AM) [facility]
--- NOTE | 2017-02-19 14:23 | PDOC3 ---
Discharge Summary* Admitting Diagnosis Problems Medical Problems: (1) Right sided weakness Status: Acute Problems: Final Diagnosis Date of discharge: 02/20/2017 Final diagnosis: Previous history of CVA, and a cerebral aneurysms with coiling. #2 hypertension #3 anxiety. #4 possible migraine phenomena and Brief hospital course a 41-year-old female patient presents to the ER with complaints of right-sided upper extremity weakness and lower extremity weakness , she has been placed in neurologist abdomen unit, evaluated by neurology patient underwent MR A and MRI of brain, no acute new findings observed. Most of her symptoms may be contributed to proceed with anxiety patient may need further evaluation by psychiatric as an outpatient basis. At this time she deemed stable enough to go home and follow up with primary care doctor. Neurology recommended patient to try Topamax as an outpatient basis and follow- up with Dr. ford GENERAL: No apparent distress. Alert and oriented 3 HEENT: Head normocephalic, atraumatic. NECK: Supple LUNGS: Clear to auscultation. HEART: RRR, S1, S2 present, pulses intact ABDOMEN: Soft, positive bowel sounds. 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 Discharge disposition home Discharge condition stable Follow-up with primary care doctor in 2-4 weeks and psychiatrically in 2-4 weeks Total time spent for discharge is 32 minutes for patient education counseling and coordination of care and physical examination. Brief Hospital Course Ms. Thomson is a 41 old [sex] who presented with [ ] Scheduled Aspirin (Aspir 81), 1 TAB PO DAILY, (Reported) Clonazepam (Clonazepam), 0.5 MG PO BID Clonidine (Clonidine Tts-2), 1 PATCH TD WEEKLY, (Reported) Fluoxetine Hcl (Fluoxetine Hcl), 60 MG PO DAILY, (Reported) Lisinopril (Lisinopril), 1 TAB PO DAILY, (Reported) Discontinued Medications Clonidine Hcl (Clonidine Hcl), 0.2 MG TOP CHANGE EVERY MONDAY, (Reported) Time Spent Total time spent with patient [] minutes for coordination of care, counseling, and education. TAYLOR DICKERSON MD Feb 19, 2017 14:23
[2017-02-19 14:30] VITALS: BP 121/85
[2017-02-19] MEDS: HYDROcodone/APAP 5/325MG 1 TAB TABLET PO PRN ×2 (14:55→20:47)
[2017-02-19 19:00] VITALS: BP 109/69
--- NOTE | 2017-02-19 20:43 | PDOC ---
PROGRESS NOTES Assessment Problems Medical Problems: (1) Right sided weakness Status: Acute Investigation to evaluate for stroke with MRI of the brain was normal. 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 There was no new lesion. MRA of the intracranial arteries did identify the previously treated aneurysm without any leakage into the sac or new aneurysm. There was no area of stenosis. The right sided weakness would not appear to have an organic etiology. 2. Possible seizure She is concerned about spells that awaken her from her sleep that she believes her seizure. She remembers the spells and her eyes rolled back in her head and she cannot open her jaw. This would be quite unusual for a seizure but not impossible. I will arrange for a sleep deprived EEG for the morning. We will hold the morning clonazepam as well. If the study is not revealing then she can be dismissed. She does have quite a few headaches and we could consider treating the headaches with either Depakote or topiramate. Subjective I am very scared about going home and having more spells at night. Objective Vital Signs Date Time Temp Pulse Resp B/P (MAP) Pulse Ox O2 Delivery O2 Flow Rate FiO2 02/19/17 19:00 98.4 85 17 109/69 (82) 97 Room Air 98.4 Intake and Output 02/19/17 07:00 Intake Total 1660 ml Balance 1660 ml Intake Oral 660 ml IV Total 1000 ml # Voids 7 PHYSICAL EXAM She was alert, awake and cooperative. Speech was fluent and clear. She did good fund of recent and remote knowledge. Attention and concentration was intact. The eyes were conjugate and face symmetric. Movements of the arms and legs were symmetric and well coordinated. Review of Relevant I have reviewed the following items nicole (where applicable) has been applied. Labs Laboratory Tests Test 02/18/17 11:20 02/18/17 11:42 02/19/17 05:40 White Blood Count 5.2 x10^3/uL (4.0-11.0) 4.5 x10^3/uL (4.0-11.0) Red Blood Count 3.88 x10^6/uL (3.50-5.40) 3.47 x10^6/uL (3.50-5.40) Hemoglobin 11.4 g/dL (12.0-15.5) 10.1 g/dL (12.0-15.5) Hematocrit 33.7 % (36.0-47.0) 31.0 % (36.0-47.0) Mean Corpuscular Volume 87 fL (79-100) 89 fL (79-100) Mean Corpuscular Hemoglobin 29 pg (25-35) 29 pg (25-35) Mean Corpuscular Hemoglobin Concent 34 g/dL (31-37) 33 g/dL (31-37) Red Cell Distribution Width 14.0 % (11.5-14.5) 14.4 % (11.5-14.5) Platelet Count 467 x10^3/uL (140-400) 361 x10^3/uL (140-400) Neutrophils (%) (Auto) 73 % (31-73) 52 % (31-73) Lymphocytes (%) (Auto) 20 % (24-48) 36 % (24-48) Monocytes (%) (Auto) 6 % (0-9) 8 % (0-9) Eosinophils (%) (Auto) 1 % (0-3) 3 % (0-3) Basophils (%) (Auto) 1 % (0-3) 1 % (0-3) Neutrophils # (Auto) 3.8 x10^3uL (1.8-7.7) 2.4 x10^3uL (1.8-7.7) Lymphocytes # (Auto) 1.0 x10^3/uL (1.0-4.8) 1.6 x10^3/uL (1.0-4.8) Monocytes # (Auto) 0.3 x10^3/uL (0.0-1.1) 0.4 x10^3/uL (0.0-1.1) Eosinophils # (Auto) 0.0 x10^3/uL (0.0-0.7) 0.1 x10^3/uL (0.0-0.7) Basophils # (Auto) 0.0 x10^3/uL (0.0-0.2) 0.0 x10^3/uL (0.0-0.2) Prothrombin Time 12.8 SEC (11.7-14.0) Prothromb Time International Ratio 1.0 (0.8-1.1) Activated Partial Thromboplast Time 29 SEC (24-38) Fibrinogen 346 mg/dL (200-440) Sodium Level 142 mmol/L (136-145) 139 mmol/L (136-145) Potassium Level 3.6 mmol/L (3.5-5.1) 3.6 mmol/L (3.5-5.1) Chloride Level 106 mmol/L (98-107) 104 mmol/L (98-107) Carbon Dioxide Level 27 mmol/L (21-32) 26 mmol/L (21-32) Anion Gap 9 (6-14) 9 (6-14) Blood Urea Nitrogen 14 mg/dL (7-20) 7 mg/dL (7-20) Creatinine 0.9 mg/dL (0.6-1.0) 0.7 mg/dL (0.6-1.0) Estimated GFR (Cockcroft-Gault) 83.5 111.6 Glucose Level 133 mg/dL (70-99) 89 mg/dL (70-99) Calcium Level 8.7 mg/dL (8.5-10.1) 8.5 mg/dL (8.5-10.1) Total Bilirubin 0.2 mg/dL (0.2-1.0) Direct Bilirubin 0.1 mg/dL (0.0-0.2) Aspartate Amino Transf (AST/SGOT) 17 U/L (15-37) Alanine Aminotransferase (ALT/SGPT) 22 U/L (14-59) Alkaline Phosphatase 49 U/L (46-116) Total Protein 7.6 g/dL (6.4-8.2) Albumin 3.6 g/dL (3.4-5.0) Glucose (Fingerstick) 115 mg/dL (70-99) Laboratory Tests Test 02/19/17 05:40 White Blood Count 4.5 x10^3/uL (4.0-11.0) Red Blood Count 3.47 x10^6/uL (3.50-5.40) Hemoglobin 10.1 g/dL (12.0-15.5) Hematocrit 31.0 % (36.0-47.0) Mean Corpuscular Volume 89 fL (79-100) Mean Corpuscular Hemoglobin 29 pg (25-35) Mean Corpuscular Hemoglobin Concent 33 g/dL (31-37) Red Cell Distribution Width 14.4 % (11.5-14.5) Platelet Count 361 x10^3/uL (140-400) Neutrophils (%) (Auto) 52 % (31-73) Lymphocytes (%) (Auto) 36 % (24-48) Monocytes (%) (Auto) 8 % (0-9) Eosinophils (%) (Auto) 3 % (0-3) Basophils (%) (Auto) 1 % (0-3) Neutrophils # (Auto) 2.4 x10^3uL (1.8-7.7) Lymphocytes # (Auto) 1.6 x10^3/uL (1.0-4.8) Monocytes # (Auto) 0.4 x10^3/uL (0.0-1.1) Eosinophils # (Auto) 0.1 x10^3/uL (0.0-0.7) Basophils # (Auto) 0.0 x10^3/uL (0.0-0.2) Sodium Level 139 mmol/L (136-145) Potassium Level 3.6 mmol/L (3.5-5.1) Chloride Level 104 mmol/L (98-107) Carbon Dioxide Level 26 mmol/L (21-32) Anion Gap 9 (6-14) Blood Urea Nitrogen 7 mg/dL (7-20) Creatinine 0.7 mg/dL (0.6-1.0) Estimated GFR (Cockcroft-Gault) 111.6 Glucose Level 89 mg/dL (70-99) Calcium Level 8.5 mg/dL (8.5-10.1) Medications Current Medications Ondansetron HCl (Zofran) 4 mg 1X ONCE IV Last administered on 02/18/17 11:57; Start 02/18/17 at 11:30; Stop 02/18/17 at 11:31; Status DC Sodium Chloride 1,000 ml @ 1,000 mls/hr 1X ONCE IV Last administered on 11:57; Start 02/18/17 at 11:30; Stop 02/18/17 at 12:29; Status DC Ondansetron HCl (Zofran) 4 mg PRN Q8HRS PRN IV NAUSEA/VOMITING; Start 02/18/17 at 12:45; Stop 02/19/17 at 12:44; Status DC Aspirin (Mirza Aspirin) 325 mg 1X ONCE PO Last administered on 02/18/17 13:03 ; Start 02/18/17 at 12:50; Stop 02/18/17 at 12:51; Status DC Aspirin (Ecotrin) 81 mg DAILY PO Last administered on 02/19/17 08:56; Start 02/19/17 at 09:00 Clonazepam (KlonoPIN) 0.5 mg BID PO Last administered on 02/19/17 08:56; Start 02/18/17 at 17:30 Fluoxetine HCl (PROzac) 60 mg DAILY PO Last administered on 02/19/17 08:56; Start 02/18/17 at 17:30 Lisinopril (Prinivil) 10 mg DAILY PO Last administered on 02/19/17 08:55; Start 02/18/17 at 17:30 Clonidine HCl (Catapres Tts-2) 1 patch WEEKLY TD ; Start 02/25/17 at 09:00 Acetaminophen (Tylenol) 500 mg PRN Q6HRS PRN PO MILD PAIN / TEMP Last administered on 02/19/17 13:51; Start 02/18/17 at 20:15 Clonazepam (KlonoPIN) 0.5 mg 1X ONCE PO Last administered on 02/19/17 02:33; Start 02/19/17 at 02:30; Stop 02/19/17 at 02:31; Status DC Lorazepam (Ativan) 1 mg 1X ONCE IV Last administered on 02/19/17 10:28; Start 02/19/17 at 10:22; Stop 02/19/17 at 10:23; Status DC Acetaminophen/ Hydrocodone Bitart (Lortab 5/325) 1 tab PRN Q4HRS PRN PO PAIN Last administered on 02/19/17 14:55; Start 02/19/17 at 14:00 Active Scripts Active Clonazepam 0.5 Mg Tablet 0.5 Mg PO BID Reported Clonidine Tts-2 (Clonidine) 1 Each Patch.tdwk 1 Patch TD WEEKLY Aspir 81 (Aspirin) 81 Mg Tablet. 1 Tab PO DAILY Lisinopril 10 Mg Tablet 1 Tab PO DAILY Fluoxetine Hcl 20 Mg Capsule 60 Mg PO DAILY Vitals/I & O Vital Sign - Last 24 Hours 702/19/17 02/19/17 02/19/17 23:00 03:00 07:28 08:00 Temp 97.9 98.6 98.4 97.9 98.6 98.4 Pulse 79 90 82 Resp 17 18 18 B/P (MAP) 114/79 (91) 131/85 (100) 107/71 (83) Pulse Ox 99 99 100 O2 Delivery Room Air Room Air Room Air Room Air 02/19/17 02/19/17 02/19/17 02/19/17 08:55 14:30 14:55 16:33 Temp 97.9 97.9 Pulse 82 89 Resp 16 B/P (MAP) 107/71 121/85 (97) Pulse Ox 97 100 O2 Delivery Room Air Room Air Room Air 02/19/17 19:00 Temp 98.4 98.4 Pulse 85 Resp 17 B/P (MAP) 109/69 (82) Pulse Ox 97 O2 Delivery Room Air Intake and Output 02/18/17 02/18/17 02/19/17 15:00 23:00 07:00 Intake Total 1000 ml 660 ml Balance 1000 ml 660 ml LINDA MAGALLON MD Feb 19, 2017 20:43
[2017-02-19 23:00] VITALS: BP 112/69
[2017-02-20 03:00] VITALS: BP 95/63
--- NOTE | 2017-02-20 03:00 | ACF ---
Admission Forms Criteria GENERAL ADMISSION CRITERIA (Place 'X' for any and all applicable criteria): Admission is indicated for ANY ONE of the following: [ ]I. Hemodynamic instability as indicated by ANY ONE of the following(1)(2) (3)(4)(5): [ ]a) Vital sign abnormality not readily corrected by appropriate treatment within 12 to 24 hours indicated by ANY ONE of the following: [ ]i) Hypotension [ ]ii) Symptomatic Tachycardia unresponsive to treatment (eg , analgesia, fluids, sedation as indicated) [ ]iii) Orthostatic vital sign changes unresponsive to treatment (eg, fluids) [ ]b) Vital sign abnormality that is severe indicated by ANY ONE of the following: [ ]i) Inadequate perfusion indicated by ANY ONE of the following: [ ]1) Lactic acidosis (greater than 2 mmol/L) [ ]2) New abnormal capillary refill (greater than 3 seconds) [ ]3) Other metabolic acidosis (arterial pH less than 7.35) not otherwise explained [ ]4) Reduced urine output [ ]5) Altered mental status [ ]6) Myocardial Ischemia [ ]v) Mean arterial pressure[A] less than 60 mm Hg [ ]vi) Mean arterial pressure[A] less than 70 mm Hg after 30 minutes of appropriate treatment (eg, fluid resuscitation) [ ]vii) IV inotropic or vasopressor medication required to maintain adequate blood pressure or perfusion [ ]viii) Sustained heart rate greater than 120 beats per minute in adult or child 6 years or older[B]] [ ]II. Hypertension requiring inpatient treatment as indicated by ANY ONE of the following(6)(7)(8): [ ]a) SBP greater than 220 mm Hg or DBP greater than 120 mm Hg despite treatment [ ]b) SBP greater than 140 mm Hg or DBP greater than 100 mm Hg with evidence of acute end organ damage as indicated by ANY ONE of the following: [ ]i) Encephalopathy [ ]ii) Acute renal failure as indicated by new onset of ANY ONE of the following(9)(10)(11)(12)(13): [ ]1) A 3-fold rise in serum creatinine from baseline [ ]2) Serum creatinine greater than 4 mg/dL ( 354 micromoles/L) with acute rise greater than 0.5 mg/dL (44.2 micromoles/L) [ ]3) Reduction of more than 75% in estimated glomerular filtration rate from baseline [ ]4) Estimated glomerular filtration rate less than 35 mL/min/1.73m2 (0.59 mL/sec/1.73m2) in child up to 18 years of age [ ]5) Cessation of urine output indicated by ALL of the following: [ ]A. Adequate volume status [ ]B. Inadequate urine output as indicated by ANY ONE of the following: [ ]a. Urine output less than 0.3 mL/kg/hr for 24 hours [ ]b. Anuria (urine output less than 0.1 mL/kg/hr) for 12 hours [ ]iii) Aortic dissection [ ]iv) Myocardial ischemia [ ]v) Left ventricular heart failure [ ]vi) Retinal hemorrhage [ ]vii) Other significant finding [ ]c) Hypertension in child requiring inpatient treatment as indicated by ALL of the following(14)(15)(16): [ ]i) Outpatient treatment not effective, not available, or not appropriate [ ]ii) SBP or DBP greater than 95th percentile for age [ ]iii) Evidence of acute end organ damage as indicated by ANY ONE of the following: [ ]1) Altered mental status [ ]2) Acute renal failure as indicated by new onset of ANY ONE of the following(9)(10)(11)(12)(13): [ ]A. A 3-fold rise in serum creatinine from baseline [ ]B. Serum creatinine greater than 4 mg/dL (354 micromoles/L) with acute rise greater than 0.5 mg/dL (44.2 micromoles/L) [ ]C. Reduction of more than 75% in estimated glomerular filtration rate from baseline [ ]D. Estimated glomerular filtration rate less than 35 mL/min/1.73m2 (0.59 mL/sec/1.73m2)in child up to 18 years of age [ ]E. Cessation of urine output indicated by ALL of the following: [ ]a. Adequate volume status [ ]b. Inadequate urine output as indicated by ANY ONE of the following: [ ]1) Urine output less than 0.3 mL/kg/hr for 24 hours [ ]2) Anuria (urine output less than 0.1 mL/kg/hr) for 12 hours [ ]3) Severe headache [ ]4) Visual disturbance [ ]5) Retinal hemorrhage [ ]6) Other significant finding [ ]III. Acute cardiac or peripheral ischemia as indicated by ANY ONE of the following: [ ]a) Acute coronary syndrome(17)(18) [ ]b) Acute peripheral ischemia (eg, pulseless, cool, mottled, or cyanotic extremity)(19) [ ]IV. Cardiac arrhythmias or findings of immediate concern indicated by ANY ONE of the following(20)(21): [ ]a) Heart rhythms that are inherently dangerous or unstable indicated by ANY ONE of the following(22)(23)(24): [ ]i) Resuscitated ventricular fibrillation or cardiac arrest [ ]ii) Ventricular escape rhythm [ ]iii) Sustained ventricular tachycardia (30 seconds or more of ventricular rhythm at greater than 100 beats per minute) [ ]iv) Nonsustained ventricular tachycardia and ANY ONE of the following: [ ]1) Suspected cardiac ischemia as cause or consequence of ventricular tachycardia [ ]2) In setting of acute myocarditis [ ]b) Unstable cardiac conduction defects indicated by ANY ONE of the following(24)(25)(26): [ ]i) Type II second-degree atrioventricular block [ ]ii) Third-degree atrioventricular block [ ]iii) New-onset left bundle branch block with suspected myocardial ischemia [ ]c) Any heart rhythm and ANY ONE of the following(22)(23)(27)(28)( 29): [ ] i) Continuous long-term ECG monitoring needed (eg, initiation of drug requiring monitoring for more than 24 hours) [ ] ii) Patient has automatic implanted cardioverter defibrillator that is repeatedly firing, malfunctioning, or in need of immediate adjustment of settings beyond the scope of ambulatory or observation care. [ ]d) Heart rhythms of concern due to ANY ONE of the following: [ ]i) Hypotension [ ]ii) Respiratory distress [ ]iii) Association with other significant symptoms (eg, bradycardia with syncope or ongoing dizziness, supraventricular tachycardia with chest pain) (27)(28) (30) [ ] V. Severe heart failure as indicated by ANY ONE of the following ( 31)(32): [ ]a) Respiratory distress [ ]b) Hypotension [ ]c) Anasarca (refractory to outpatient therapy) [ ]d) Cardiac arrhythmias of immediate concern [ ]e) Myocardial ischemia [ ]. Respiratory abnormalities, including ANY ONE of the following(33)(34) (35)(36): [ ]a) Respiratory rate greater than 30 breaths per minute unresponsive to treatment [A] [ ]b) New saturation of arterial oxygen less than 90% [ ]c) New partial pressure of carbon dioxide greater than 44 mm Hg ( 5.9 kPa) [ ]d) Supplemental oxygen or respiratory treatments needed that are new or not performable at other levels of care [ ]e) New-onset cyanosis [ ]f) Inability to protect airway [ ]g) Chronic lung disease with severe deterioration (not responsive to emergency and observation care treatment as appropriate) as indicated by ANY ONE of the following(34)(36 ): [ ]i) SaO2 5% below baseline in patient with chronic hypoxemia [ ]ii) New requirement for supplemental oxygen to keep SaO2 at baseline or acceptable level [ ]iii) Required supplemental oxygen performable only in acute inpatient setting [ ]iv) Severe airflow or ventilation abnormalities [ ]v) Previously mobile patient unable to walk between rooms [ ]vi Inability to eat or sleep due to dyspnea [ ]vii) Rapid rate of exacerbation onset [ ]viii) Altered mental status ]VII. Severe airflow or ventilation abnormalities (not responsive to emergency and observation care treatment as appropriate) as indicated by ANY ONE of the following(33)(34)(35)(37): [ ]a) PCO2 greater than 42 mm Hg (5.6 kPa) and pH less than 7.35 (new ) [ ]b) Documented PCO2 increased more than 5 mm Hg (0.7 kPa) from disease baseline [ ]c) Airflow measurements [B] less than 60% of previous best or predicted (eg, peak expiratory flow rate less than 300 L/minute) despite intensive emergent treatment [C] [ ]d) Required respiratory treatments that are performable only in acute inpatient setting [ ]VIII. Impending or actual respiratory arrest ( Also use Respiratory Failure GRG for severe respiratory disease and long-term mechanical ventilation patients) [ ]IX. Neurologic abnormalities, including ANY ONE of the following: [ ]a) New findings that suggest ANY ONE of the following: [ ]i) BULK RECEIVER infection(38) [ ]ii) Cerebral bleeding, ischemia, or vasospasm(39)(40) [ ]iii) Increased intracranial pressure, hydrocephalus, or cerebral edema(41)(42)(43) [ ]iv) Spinal cord injury(44) [ ]b) Uncontrolled seizures(45) [ ]c) New-onset coma (eg, Uday coma scale score less than 9) or unexplained abnormal mental status (eg, Uday coma scale score less than 14) [D](41)(46)(47) [ ]X. New-onset severe neurologic findings requiring inpatient care; examples include(42)(48)(49): [ ]a) Papilledema [ ]b) Cerebral edema [ ]c) Mass effect on CT scan [ ]XI. Suspected acute intra-abdominal process with peritoneal signs, abdominal mass, or similar findings (50)(51)(52) [ ]XII. Severe physiologic disorder remaining after emergency or observation level care (as appropriate) as indicated by ANY ONE of the following (53): [ ]a) Significant dehydration [ ]b) Diabetic ketoacidosis [ ]c) Hyperglycemic hyperosmolar state (eg, osmolality greater than 320 mOsm/kg (mmol/kg) [ ]d) Hypoglycemia [ ]e) Other (new) acid-base disorder with pH less than 7.35 or greater than 7.5(54) [ ]f) Thyroid storm (55) [ ]g) Myxedema coma (55) [ ]XIII. Abdominal abnormalities with ANY ONE of the following(56)(57): [ ]a) Absent bowel sounds with complete ileus [ ]b) Signs of intestinal obstruction or peritonitis [E] [ ]c) Nausea and vomiting that cannot be controlled with outpatient or observation care [ ]XIV. Acute renal failure as indicated by new onset of ANY ONE of the following(9)(10)(11)(12)(13): [ ]a) A 3-fold rise in serum creatinine from baseline [ ]b) Serum creatinine greater than 4 mg/dL (354 micromoles/L) with acute rise greater than 0.5 mg/dL (44.2 micromoles/L) [ ]c) Reduction of more than 75% in estimated glomerular filtration rate from baseline [ ]d) Estimated glomerular filtration rate less than 35 mL/min/ 1.73m2 (0.59 mL/sec/1.73m2) in child up to 18 years of age [ ]e) Cessation of urine output indicated by ALL of the following: [ ]i) Adequate volume status [ ]ii) Inadequate urine output as indicated by ANY ONE of the following: [ ]1) Urine output less than 0.3 mL/kg/hr for 24 hours [ ]2) Anuria (urine output less than 0.1 mL/kg/hr) for 12 hours [ ]XV. Significant uremic complications as indicated by ANY ONE of the following(58)(59)(60): [ ]a) Outpatient therapy is ineffective or not feasible for ANY ONE of the following: [ ]i) Severe heart failure [ ]ii) Severehypertension [ ]iii) Pleural effusion [ ]iv) Pericarditis or pericardial effusion [ ]b) Cardiac arrhythmias of immediate concern [ ]c) Intractable nausea or vomiting [ ]d) Recurrent seizures [ ]e) Encephalopathy [ ]f) Bleeding abnormalities (eg, platelet dysfunction) with active (eg, gastrointestinal) bleeding [ ]g) Dialysis indicated before long-term access or ambulatory arrangements can be made [ ]h) Significant metabolic or electrolyte abnormalities (eg, severe acidosis or hyperkalemia) [ ]XVI. High fever or other high-risk infection situation as indicated by ANY ONE of the following(61)(62)(63)(64): [ ]a) Outpatient and observation care antimicrobial treatment unavailable, not effective, or not appropriate [ ]b) Documented bacteremia [ ]c) Temperature greater than 40.5 degrees C (104.9 degrees F) ( oral) [ ]d) Temperature greater than 39.5 degrees C (103.1 degrees F) ( oral) or less than 36 degrees C (96.8 degrees F) (rectal) that does not respond to e treatment and observation care [ ] XVII. Temperature less than 95 degrees F (35 degrees C)(rectal)(65) [ ] XVIII. Severe nutritional abnormalities as indicated by ALL of the following (66)(67): [ ]a) Inability to tolerate or establish sufficient oral or other enteral nutrition in outpatient setting [ ]b) Parenteral nutrition regimen need that must be implemented on inpatient basis [ ] XIX. Severe electrolyte abnormalities indicated by ALL of the following(68) (69)(70): [ ]a) Electrolytes and associated findings are not as expected for patient baseline or acceptable treatment effects. [ ]b) Severe abnormalities indicated by ANY ONE of the following: [ ]i) Sodium less than 130 mEq/L (mmol/L) (new) [ ]ii)Sodium less than 135 mEq/L (mmol/L) with ANY ONE of the following: [ ]1) Uncorrectable (to near normal or chronic baseline) after trial of outpatient and emergency treatment [ ]2) Altered mental status [ ]3) Seizures [ ]4) Severe medical etiology requiring inpatient management (eg, heart failure, hypovolemia) [ ]iii) Sodium greater than 155 mEq/L (mmol/L) [ ]iv) Sodium greater than 150 mEq/L (mmol/L) with ANY ONE of the following: [ ]1) Uncorrectable (to near normal or chronic baseline) with outpatient and emergency treatment [ ]2) Altered mental status [ ]3) Seizures [ ]4) Severe medical etiology (eg, hypovolemia, diabetes insipidus) [ ]v) Potassium less than 2.5 mEq/L (mmol/L) despite outpatient and emergency treatment [ ]vi) Potassium less than 3 mEq/L (mmol/L) with ANY ONE of the following: [ ]1) Weakness [ ]2) Cardiac abnormality (eg, arrhythmia, conduction disturbance) [ ]3) Cardiac ischemia [ ]4) Ileus [ ]5) Ongoing medical cause requiring inpatient management (eg, acute renal wasting or SIADH) [ ]6) Other severe symptoms [ ]vii) Potassium greater than 6.5 mEq/L (mmol/L) [ ]viii) Potassium greater than 5 mEq/L (mmol/L) with ANY ONE of the following: [ ]1) Uncorrectable (to near normal or chronic baseline) with outpatient and emergency treatment [ ]2) Severe ECG findings [F] [ ]3) Acute worsening of renal failure (creatinine greater than 2.5 mg/dL (221 micromoles/L) or significant elevation for age and size) [ ]4) Severe weakness [ ]5) Severe medical etiology (eg, hemolysis, infection, drug overdose) [ ]ix) Calcium less than 7 mg/dL (1.75 mmol/L) despite outpatient and emergency treatment (72) [ ]x) Calcium less than 8 mg/dL (2 mmol/L) with significant symptoms or findings; examples include(72): [ ]1) Altered mental status [ ]2) Muscle spasms [ ]3) Seizures [ ]4) Breathing difficulty [ ]5) Cardiac abnormality (eg, arrhythmia or conduction disturbance) [ ]xi) Calcium greater than 14 mg/dL (3.5 mmol/L)(72) [ ]xii) Calcium greater than 12 mg/dL (3 mmol/L) with ANY ONE of the following(72): [ ]1) Uncorrectable (to near normal or chronic baseline) with outpatient and emergency treatment [ ]2) Significant dehydration or hypovolemia as indicated by ALL of the following(70)(73)(74): [ ]A. Not resolved with initial treatments [ ]B. Clinically significant dehydration as indicated by ANY ONE of the following: [ ]a. Vomiting refractory to outpatient treatment (ie, precluding oral rehydration) [ ]b. Inability to drink [ ]c. Hypernatremia or other electrolyte abnormality unable to be corrected with outpatient and emergency treatment [ ]d. Failure to remain hydrated with outpatient therapy [ ]e. Reduced urine output [ ]f. Hypotension [ ]g. Serious cause for dehydration requiring acute hospitalization (eg, bowel obstruction, increased intracranial pressure, infectious cause) [ ]h. Child with ANY ONE of the following(75): [ ]1) Severe abdominal tenderness [ ]2) Adequate care not available at home [ ]3) Severe dehydration ( greater than 9% loss of body weight) [ ]4) Significant symptoms or findings; examples include: [ ]A. Altered mental status [ ]B. Cardiac abnormality (eg, arrhythmia, conduction disturbance) [ ]C. Malignant etiology requiring inpatient treatment [ ]xiii) Phosphorus less than 1 mg/dL (0.32 mmol/L) [ ]xiv) Phosphorus less than 1.5 mg/dL (0.48 mmol/L) with ANY ONE of the following: [ ]1) Patient unresponsive to outpatient and emergency treatment [ ]2) Significant symptoms or findings; examples include: [ ]A. Weakness [ ]B. Altered mental status [ ]C. Breathing difficulty [ ]D. Seizures [ ]E. Rhabdomyolysis [ ]xv) Phosphorus greater than 10 mg/dL (3.2 mmol/L) [ ]xvi) Phosphorus greater than 4.5 mg/dL (1.45 mmol/L) (new) with ANY ONE of the following: [ ]1) Severe medical etiology (eg, crush injury, acute renal failure) [ ]2) Associated hypocalcemia with significant findings; examples include: [ ]A. Neurologic symptoms [ ]B. Altered mental status [ ]C. Muscle spasms [ ]D. Seizures [ ]E. Breathing difficulty [ ]F. Cardiac abnormality (eg, arrhythmia, conduction disturbance) [ ]xvii) Magnesium less than 1 mg/dL (0.41 mmol/L) [ ]xviii) Magnesium less than 1.5 mg/dL (0.62 mmol/L) with ANY ONE of the following: [ ]1) Patient unresponsive to outpatient and emergency treatment [ ]2) Associated hypocalcemia with significant findings; examples include: [ ]A. Altered mental status [ ]B. Muscle spasms [ ]C. Seizures [ ]D. Breathing difficulty [ ]E. Cardiac abnormality (eg, arrhythmia , conduction disturbance) [ ]3) Associated hypokalemia (potassium less than 3 mEq/L (mmol/L)) with risk of arrhythmia [ ]xix) Magnesium greater than 4 mEq/L (2 mmol/L) [ ]xx) Magnesium greater than 2.5 mEq/L (1.25 mmol/L) with significant symptoms or findings; examples include: [ ]1) Weakness [ ]2) Altered mental status [ ]3) Cardiac abnormality (eg, arrhythmia, conduction disturbance) [ ]4) Breathing difficulty [ ]5) Severe medical etiology (eg, renal failure, hypovolemia) [ ]xxi) Uric acid greater than 20 mg/dL (1190 micromoles/L)(76) [ ]xxii) Uric acid greater than 8 mg/dL (476 micromoles/L) with significant symptoms or findings of tumor lysis syndrome; examples include(76): [ ]1) Creatinine greater than 1.5 times upper limit of normal [ ]2) Cardiac abnormality (eg, arrhythmia, conduction disturbance) [ ]3) Seizure [ ]XX. Acute blood loss causing significant abnormality as indicated by ANY ONE of the following(77)(78): [ ]a) Hemoglobin less than 10 g/dL (100 g/L) (not baseline) [ ]b) Hematocrit less than 30% (0.30) (not baseline) [ ]c) Repeat hematocrit decreased more than 2% (0.02) [ ]d) Uncontrolled bleeding [ ]XXI. Severe anemia indicated by ANY ONE of the following(78)(79): [ ]a) Altered mental status [ ]b) Chest pain [ ]c) Exertional dyspnea [ ]d) Syncope [ ]e) Other findings suggesting inadequate perfusion [ ]f) Treatment with transfusion or volume replacement is ineffective at resolving ANY ONE of the following [G]: [ ]i) Tachycardia for age [ ]ii) Orthostatic vital sign changes as indicated by ANY ONE of the following(80): [ ]1) Fall in SBP of 20 mm Hg or more 1 to 3 minutes after patient sits or stands from recumbent position [ ]2) Fall in DBP of 10 mm Hg or more 1 to 3 minutes after patient sits or stands from recumbent position [ ]XXII. High-risk low platelet count as indicated by ANY ONE of the following( 81)(82): [ ]a) Severe or life-threatening bleeding (eg, intracranial, major gastrointestinal, or extensive mucosal bleeding), with any reduced platelet count [ ]b) Platelet count less than 20,000/mm3 (20 x109/L) with any active bleeding [ ]c) Platelet count less than 10,000/mm3 (10 x109/L) with minor purpura or petechiae [ ]d) Platelet count less than 5000/mm3 (5 x109/L) [ ]e) Low platelet count with hemolytic anemia [ ]XXIII. Disseminated intravascular coagulation(77)(83) [ ]XXIV. Severe adverse drug or systemic toxin reaction requiring inpatient treatment; examples include(84)(85): [ ]a) Serotonin syndrome(86) [ ]b) Neuroleptic malignant syndrome(86) [ ]c) Cholinergic syndrome with severe symptoms (eg, bronchorrhea, weakness, mental status changes, seizures) [ ]d) Sympathetic syndrome with severe symptoms (eg, seizures, mental status changes, cardiac dysrhythmias) [ ]e) Anticholinergic syndrome [ ]XXV. Severe pain requiring acute inpatient management as indicated by ALL of the following (87)(88)(89): [ ]a) Continuous or frequent (eg, every 2 to 4 hours) parenteral analgesics required [H] [ ]b) Rapid improvement expected from treatment or acute intervention (eg, surgery, anesthesia procedure) [ ]XXVI.Severe behavioral health issues judged unmanageable at a lower level of care (eg, residential) in a patient who is ANY ONE of the following(91) [ ]a) Acutely suicidal [ ]b) A danger to self (eg, self-mutilating or suicidal behavior) [ ]c) A danger to others (eg, assaultive or homicidal behavior) [ ]d) Incapacitated because of grave disability (eg, inability to provide for self at lower level of care) (92) [X]XXVII. Inpatient monitoring needed; examples include(1)(3)(87)(93)(94)(95)(96 ): [X]a) Vital signs, neurologic signs, or vascular checks more frequently than every 4 hours [ ]b) Cardiac or respiratory monitoring beyond the scope (eg, over 24 hours) of observation care [ ]c) Pulmonary artery catheter monitoring [ ]d) Suspected compartment syndrome(97) (98) [ ]e) Cerebral bleeding, hydrocephalus, or vasospasm monitoring [ ]f) Increased intracranial pressure or cerebral edema monitoring [ ]g) monitoring [ ]XXVIII. Treatment requiring inpatient care; examples include: [ ]a) IV fluid to replace significant ongoing losses (greater than 3 L/m2 per day)(53) [ ]b) High concentration oxygen (greater than 40%)(33)(99)(100) [ ]c) Frequent respiratory therapy (more frequently than every 4 hours) to maintain airflow rates greater than 60% of baseline(33)(99)(100) [ ]d) Epidural analgesia(87) [ ]e) IV anticoagulation, vasoactive, or antiarrhythmic medication(19 )(23) [ ]f) Acute thrombolytics (generally require 24 hours of observation )(101)(102) [ ]XXIX. Emergency procedures needed; examples include: [ ]a) Emergency inpatient surgery [ ]b) Temporary pacemaker placement(103) [ ]c) Chest tube placement with active evacuation (eg, suction, drainage)(104) [ ]d) Emergent cardioversion(105) [ ]e) Emergent cardiac or vascular procedures (eg, cardiac catheterization, angioplasty) (17)(18) [ ]f) Emergent dialysis access placement and institution(10)(106) [ ]g) Emergent pericardiocentesis(107) [ ]h) Emergent plasmapheresis or leukapheresis(83) [ ]i) Emergent tracheostomy The original [employer] content created by [employer] has been revised. The portions of the content which have been revised are identified through the use of italic text or in bold, and [email or web address] has neither reviewed nor approved the modified material. All other unmodified content is copyright [employer]. Please see references footnoted in the original [facility] edition 2016 Admission Criteria Met?: Yes HOMA VILLASEÑOR Feb 20, 2017 03:00
[2017-02-20 07:42] VITALS: BP 115/82
[2017-02-20] MEDS: ASPIRIN ENTERIC COATED 81 MG TABLET.DR. PO SCH (08:19)
[2017-02-20 08:20] VITALS: BP 115/82
[2017-02-20] MEDS: FLUoxetine HCL 20 MG CAPSULE PO SCH (08:20)
[2017-02-20] MEDS: LISINOPRIL 10 MG TABLET PO SCH (08:20)
--- NOTE | 2017-02-20 10:16 | PDOC ---
PROGRESS NOTES Assessment Problems Medical Problems: (1) Right sided weakness Status: Acute Possible migraine phenomonen History of aneurysm Possible seizures Plan Awake EEG Will consider trial of empirical lamotrigine which should not have psychiatric effects but may also help with any psychiatric disease. I discussed the side effects in advance. Levetiracetam caused suicidal ideation. Follow-up with Dr. Dorsey, who has seen the patient in the past. Subjective No complaints currently Objective Vital Signs Date Time Temp Pulse Resp B/P (MAP) Pulse Ox O2 Delivery O2 Flow Rate FiO2 02/20/17 08:20 82 115/82 02/20/17 08:00 Room Air 02/20/17 07:42 98.1 16 100 98.1 Intake and Output 02/20/17 07:00 Intake Total 570 ml Balance 570 ml Intake Oral 570 ml # Voids 7 PHYSICAL EXAM Alert. Oriented to time, place and person. PERRL. EOMI. CN: no focal findings. Muscle tone: normal. Muscle strength: 5/5 DTR: 2+ Plantar reflex: flexor Gait: normal. Sensory exam: no abnormal findings. No cerebellar signs elicited. Review of Relevant I have reviewed the following items nicole (where applicable) has been applied. Labs Laboratory Tests Test 02/18/17 11:20 02/18/17 11:42 02/19/17 05:40 White Blood Count 5.2 x10^3/uL (4.0-11.0) 4.5 x10^3/uL (4.0-11.0) Red Blood Count 3.88 x10^6/uL (3.50-5.40) 3.47 x10^6/uL (3.50-5.40) Hemoglobin 11.4 g/dL (12.0-15.5) 10.1 g/dL (12.0-15.5) Hematocrit 33.7 % (36.0-47.0) 31.0 % (36.0-47.0) Mean Corpuscular Volume 87 fL (79-100) 89 fL (79-100) Mean Corpuscular Hemoglobin 29 pg (25-35) 29 pg (25-35) Mean Corpuscular Hemoglobin Concent 34 g/dL (31-37) 33 g/dL (31-37) Red Cell Distribution Width 14.0 % (11.5-14.5) 14.4 % (11.5-14.5) Platelet Count 467 x10^3/uL (140-400) 361 x10^3/uL (140-400) Neutrophils (%) (Auto) 73 % (31-73) 52 % (31-73) Lymphocytes (%) (Auto) 20 % (24-48) 36 % (24-48) Monocytes (%) (Auto) 6 % (0-9) 8 % (0-9) Eosinophils (%) (Auto) 1 % (0-3) 3 % (0-3) Basophils (%) (Auto) 1 % (0-3) 1 % (0-3) Neutrophils # (Auto) 3.8 x10^3uL (1.8-7.7) 2.4 x10^3uL (1.8-7.7) Lymphocytes # (Auto) 1.0 x10^3/uL (1.0-4.8) 1.6 x10^3/uL (1.0-4.8) Monocytes # (Auto) 0.3 x10^3/uL (0.0-1.1) 0.4 x10^3/uL (0.0-1.1) Eosinophils # (Auto) 0.0 x10^3/uL (0.0-0.7) 0.1 x10^3/uL (0.0-0.7) Basophils # (Auto) 0.0 x10^3/uL (0.0-0.2) 0.0 x10^3/uL (0.0-0.2) Prothrombin Time 12.8 SEC (11.7-14.0) Prothromb Time International Ratio 1.0 (0.8-1.1) Activated Partial Thromboplast Time 29 SEC (24-38) Fibrinogen 346 mg/dL (200-440) Sodium Level 142 mmol/L (136-145) 139 mmol/L (136-145) Potassium Level 3.6 mmol/L (3.5-5.1) 3.6 mmol/L (3.5-5.1) Chloride Level 106 mmol/L (98-107) 104 mmol/L (98-107) Carbon Dioxide Level 27 mmol/L (21-32) 26 mmol/L (21-32) Anion Gap 9 (6-14) 9 (6-14) Blood Urea Nitrogen 14 mg/dL (7-20) 7 mg/dL (7-20) Creatinine 0.9 mg/dL (0.6-1.0) 0.7 mg/dL (0.6-1.0) Estimated GFR (Cockcroft-Gault) 83.5 111.6 Glucose Level 133 mg/dL (70-99) 89 mg/dL (70-99) Calcium Level 8.7 mg/dL (8.5-10.1) 8.5 mg/dL (8.5-10.1) Total Bilirubin 0.2 mg/dL (0.2-1.0) Direct Bilirubin 0.1 mg/dL (0.0-0.2) Aspartate Amino Transf (AST/SGOT) 17 U/L (15-37) Alanine Aminotransferase (ALT/SGPT) 22 U/L (14-59) Alkaline Phosphatase 49 U/L (46-116) Total Protein 7.6 g/dL (6.4-8.2) Albumin 3.6 g/dL (3.4-5.0) Glucose (Fingerstick) 115 mg/dL (70-99) Medications Current Medications Ondansetron HCl (Zofran) 4 mg 1X ONCE IV Last administered on 02/18/17 11:57; Start 02/18/17 at 11:30; Stop 02/18/17 at 11:31; Status DC Sodium Chloride 1,000 ml @ 1,000 mls/hr 1X ONCE IV Last administered on 11:57; Start 02/18/17 at 11:30; Stop 02/18/17 at 12:29; Status DC Ondansetron HCl (Zofran) 4 mg PRN Q8HRS PRN IV NAUSEA/VOMITING; Start 02/18/17 at 12:45; Stop 02/19/17 at 12:44; Status DC Aspirin (Mirza Aspirin) 325 mg 1X ONCE PO Last administered on 02/18/17 13:03 ; Start 02/18/17 at 12:50; Stop 02/18/17 at 12:51; Status DC Aspirin (Ecotrin) 81 mg DAILY PO Last administered on 02/20/17 08:19; Start at 09:00 Clonazepam (KlonoPIN) 0.5 mg BID PO Last administered on 02/19/17 20:37; Start 02/18/17 at 17:30 Fluoxetine HCl (PROzac) 60 mg DAILY PO Last administered on 02/20/17 08:20; Start 02/18/17 at 17:30 Lisinopril (Prinivil) 10 mg DAILY PO Last administered on 02/20/17 08:20; Start 02/18/17 at 17:30 Clonidine HCl (Catapres Tts-2) 1 patch WEEKLY TD ; Start 02/25/17 at 09:00 Acetaminophen (Tylenol) 500 mg PRN Q6HRS PRN PO MILD PAIN / TEMP Last administered on 02/19/17 13:51; Start 02/18/17 at 20:15 Clonazepam (KlonoPIN) 0.5 mg 1X ONCE PO Last administered on 02/19/17 02:33; Start 02/19/17 at 02:30; Stop 02/19/17 at 02:31; Status DC Lorazepam (Ativan) 1 mg 1X ONCE IV Last administered on 02/19/17 10:28; Start 02/19/17 at 10:22; Stop 02/19/17 at 10:23; Status DC Acetaminophen/ Hydrocodone Bitart (Lortab 5/325) 1 tab PRN Q4HRS PRN PO PAIN Last administered on 02/19/17 20:47; Start 02/19/17 at 14:00 Active Scripts Active Clonazepam 0.5 Mg Tablet 0.5 Mg PO BID Reported Clonidine Tts-2 (Clonidine) 1 Each Patch.tdwk 1 Patch TD WEEKLY Aspir 81 (Aspirin) 81 Mg Tablet. 1 Tab PO DAILY Lisinopril 10 Mg Tablet 1 Tab PO DAILY Fluoxetine Hcl 20 Mg Capsule 60 Mg PO DAILY Vitals/I & O Vital Sign - Last 24 Hours 02/19/17 02/19/17 02/19/17 02/19/17 14:30 14:55 19:00 20:14 Temp 97.9 98.4 97.9 98.4 Pulse 89 85 Resp 16 17 B/P (MAP) 121/85 (97) 109/69 (82) Pulse Ox 97 100 97 O2 Delivery Room Air Room Air Room Air Room Air 02/19/17 02/19/17 02/19/1717 20:47 21:50 23:00 03:00 Temp 98.6 98.0 98.6 98.0 Pulse 77 68 Resp 18 18 18 17 B/P (MAP) 112/69 (83) 95/63 (74) Pulse Ox 97 97 98 100 O2 Delivery Room Air Room Air Room Air Room Air 02/20/17 02/20/17 02/20/17 07:42 08:00 08:20 Temp 98.1 98.1 Pulse 82 82 Resp 16 B/P (MAP) 115/82 (93) 115/82 Pulse Ox 100 O2 Delivery Room Air Room Air Intake and Output 02/19/17 02/19/17 02/20/17 15:00 23:00 07:00 Intake Total 120 ml 450 ml Balance 120 ml 450 ml MONROE MCCRACKEN MD Feb 20, 2017 10:16
--- NOTE | 2017-02-20 10:30 | PDOC ---
PROGRESS NOTES Chief Complaint Chief Complaint Chief complaint seizure-like activity Date of exam 02/19/2017 this is a late entry. Next Assessment and plan Possible migraine phenomonen History of aneurysm Possible seizures Plan Allergies conserving her Topamax treatment for a possible migraine phenomenon, imaging studies revealed no acute findings noted. Labs reviewed. Continue current management, discharge planning based on neurology input. Vitals Vitals Vital Signs Date Time Temp Pulse Resp B/P (MAP) Pulse Ox O2 Delivery O2 Flow Rate FiO2 02/20/17 08:20 82 115/82 02/20/17 08:00 Room Air 02/20/17 07:42 98.1 16 100 98.1 Physical Exam General: Alert, Oriented X3 Heart: Normal S1, Normal S2 Lungs: Clear Abdomen: Normal bowel sounds Extremities: No clubbing, No cyanosis Assessment and Plan Assessmemt and Plan Problems Medical Problems: (1) Right sided weakness Status: Acute Problems: Comment Review of Relevant I have reviewed the following items nicole (where applicable) has been applied. Labs Laboratory Tests Test 02/18/17 11:20 02/18/17 11:42 02/19/17 05:40 White Blood Count 5.2 x10^3/uL (4.0-11.0) 4.5 x10^3/uL (4.0-11.0) Red Blood Count 3.88 x10^6/uL (3.50-5.40) 3.47 x10^6/uL (3.50-5.40) Hemoglobin 11.4 g/dL (12.0-15.5) 10.1 g/dL (12.0-15.5) Hematocrit 33.7 % (36.0-47.0) 31.0 % (36.0-47.0) Mean Corpuscular Volume 87 fL (79-100) 89 fL (79-100) Mean Corpuscular Hemoglobin 29 pg (25-35) 29 pg (25-35) Mean Corpuscular Hemoglobin Concent 34 g/dL (31-37) 33 g/dL (31-37) Red Cell Distribution Width 14.0 % (11.5-14.5) 14.4 % (11.5-14.5) Platelet Count 467 x10^3/uL (140-400) 361 x10^3/uL (140-400) Neutrophils (%) (Auto) 73 % (31-73) 52 % (31-73) Lymphocytes (%) (Auto) 20 % (24-48) 36 % (24-48) Monocytes (%) (Auto) 6 % (0-9) 8 % (0-9) Eosinophils (%) (Auto) 1 % (0-3) 3 % (0-3) Basophils (%) (Auto) 1 % (0-3) 1 % (0-3) Neutrophils # (Auto) 3.8 x10^3uL (1.8-7.7) 2.4 x10^3uL (1.8-7.7) Lymphocytes # (Auto) 1.0 x10^3/uL (1.0-4.8) 1.6 x10^3/uL (1.0-4.8) Monocytes # (Auto) 0.3 x10^3/uL (0.0-1.1) 0.4 x10^3/uL (0.0-1.1) Eosinophils # (Auto) 0.0 x10^3/uL (0.0-0.7) 0.1 x10^3/uL (0.0-0.7) Basophils # (Auto) 0.0 x10^3/uL (0.0-0.2) 0.0 x10^3/uL (0.0-0.2) Prothrombin Time 12.8 SEC (11.7-14.0) Prothromb Time International Ratio 1.0 (0.8-1.1) Activated Partial Thromboplast Time 29 SEC (24-38) Fibrinogen 346 mg/dL (200-440) Sodium Level 142 mmol/L (136-145) 139 mmol/L (136-145) Potassium Level 3.6 mmol/L (3.5-5.1) 3.6 mmol/L (3.5-5.1) Chloride Level 106 mmol/L (98-107) 104 mmol/L (98-107) Carbon Dioxide Level 27 mmol/L (21-32) 26 mmol/L (21-32) Anion Gap 9 (6-14) 9 (6-14) Blood Urea Nitrogen 14 mg/dL (7-20) 7 mg/dL (7-20) Creatinine 0.9 mg/dL (0.6-1.0) 0.7 mg/dL (0.6-1.0) Estimated GFR (Cockcroft-Gault) 83.5 111.6 Glucose Level 133 mg/dL (70-99) 89 mg/dL (70-99) Calcium Level 8.7 mg/dL (8.5-10.1) 8.5 mg/dL (8.5-10.1) Total Bilirubin 0.2 mg/dL (0.2-1.0) Direct Bilirubin 0.1 mg/dL (0.0-0.2) Aspartate Amino Transf (AST/SGOT) 17 U/L (15-37) Alanine Aminotransferase (ALT/SGPT) 22 U/L (14-59) Alkaline Phosphatase 49 U/L (46-116) Total Protein 7.6 g/dL (6.4-8.2) Albumin 3.6 g/dL (3.4-5.0) Glucose (Fingerstick) 115 mg/dL (70-99) Medications Current Medications Ondansetron HCl (Zofran) 4 mg 1X ONCE IV Last administered on 02/18/17 11:57; Start 02/18/17 at 11:30; Stop 02/18/17 at 11:31; Status DC Sodium Chloride 1,000 ml @ 1,000 mls/hr 1X ONCE IV Last administered on 11:57; Start 02/18/17 at 11:30; Stop 02/18/17 at 12:29; Status DC Ondansetron HCl (Zofran) 4 mg PRN Q8HRS PRN IV NAUSEA/VOMITING; Start 02/18/17 at 12:45; Stop 02/19/17 at 12:44; Status DC Aspirin (Mirza Aspirin) 325 mg 1X ONCE PO Last administered on 02/18/17 13:03 ; Start 02/18/17 at 12:50; Stop 02/18/17 at 12:51; Status DC Aspirin (Ecotrin) 81 mg DAILY PO Last administered on 02/20/17 08:19; Start at 09:00 Clonazepam (KlonoPIN) 0.5 mg BID PO Last administered on 02/19/17 20:37; Start 02/18/17 at 17:30 Fluoxetine HCl (PROzac) 60 mg DAILY PO Last administered on 02/20/17 08:20; Start 02/18/17 at 17:30 Lisinopril (Prinivil) 10 mg DAILY PO Last administered on 02/20/17 08:20; Start 02/18/17 at 17:30 Clonidine HCl (Catapres Tts-2) 1 patch WEEKLY TD ; Start 02/25/17 at 09:00 Acetaminophen (Tylenol) 500 mg PRN Q6HRS PRN PO MILD PAIN / TEMP Last administered on 02/19/17 13:51; Start 02/18/17 at 20:15 Clonazepam (KlonoPIN) 0.5 mg 1X ONCE PO Last administered on 02/19/17 02:33; Start 02/19/17 at 02:30; Stop 02/19/17 at 02:31; Status DC Lorazepam (Ativan) 1 mg 1X ONCE IV Last administered on 02/19/17 10:28; Start 02/19/17 at 10:22; Stop 02/19/17 at 10:23; Status DC Acetaminophen/ Hydrocodone Bitart (Lortab 5/325) 1 tab PRN Q4HRS PRN PO PAIN Last administered on 02/19/17 20:47; Start 02/19/17 at 14:00 Active Scripts Active Clonazepam 0.5 Mg Tablet 0.5 Mg PO BID Reported Clonidine Tts-2 (Clonidine) 1 Each Patch.tdwk 1 Patch TD WEEKLY Aspir 81 (Aspirin) 81 Mg Tablet.dr 1 Tab PO DAILY Lisinopril 10 Mg Tablet 1 Tab PO DAILY Fluoxetine Hcl 20 Mg Capsule 60 Mg PO DAILY Vitals/I & O Vital Sign - Last 24 Hours 02/19/17 02/19/17 02/19/17 02/19/17 14:30 14:55 19:00 20:14 Temp 97.9 98.4 97.9 98.4 Pulse 89 85 Resp 16 17 B/P (MAP) 121/85 (97) 109/69 (82) Pulse Ox 97 100 97 O2 Delivery Room Air Room Air Room Air Room Air 02/19/17 02/19/17 02/19/17 02/20/17 20:47 21:50 23:00 03:00 Temp 98.6 98.0 98.6 98.0 Pulse 77 68 Resp 18 18 18 17 B/P (MAP) 112/69 (83) 95/63 (74) Pulse Ox 97 97 98 100 O2 Delivery Room Air Room Air Room Air Room Air 02/20/17 02/20/17 02/20/17 07:42 08:00 08:20 Temp 98.1 98.1 Pulse 82 82 Resp 16 B/P (MAP) 115/82 (93) 115/82 Pulse Ox 100 O2 Delivery Room Air Room Air Intake and Output 02/19/17 02/19/17 02/20/17 15:00 23:00 07:00 Intake Total 120 ml 450 ml Balance 120 ml 450 ml TAYLOR DICKERSON MD Feb 20, 2017 10:30
[2017-02-20] MEDS ORDERED: TOPI25TA52 PO (10:32)
--- NOTE | 2017-02-20 14:23 | PDOC ---
DATE DATE OF STUDY 02/20/17 EEG # [id number] EEG STUDY RESULTS EEG STUDY RESULTS OBJECT: The patient is a 41-year-old female with episodes of altered consciousness, rule out seizures DESCRIPTION: This is a digital study. Electrodes are placed according to the international 10-20 system. Bipolar and referential montages are available. Activation procedures typically included hyperventilation and intermittent photic stimulation. INTERPRETATION: The waking background consists of 9-10 Hz, 50-100 V activity reactive to eye opening. There is attenuation of the background over the right hemisphere (or the higher amplitude in the left hemisphere may represent a breach activity). During the recording the patient had an anxiety episode not accompanied by abnormal electroencephalogram activity. Sleep was not achieved. Hyperventilation is noncontributory. Intermittent photic stimulations are noncontributory. IMPRESSION: This select encephalogram the patient awake only is abnormal because of asymmetry of the amplitude of the background activity consistent with the patient's known craniotomy history. An episode of anxiety was recorded , unaccompanied by abnormal activity. There is no focal, paroxysmal, or epileptiform activity. Thank you for letting me help with the patient's care. MONROE MCCRACKEN MD Feb 20, 2017 14:23
[2017-02-21] MEDS ORDERED: ESCITALOPRAM 10 MG TABLET. PO SCH (09:00)
[2017-02-25] MEDS ORDERED: cloNIDine TTS-2 1 PATCH PATCH TD SCH (09:00)
== END 2017-02-20 15:06 | disposition home or self-care (01) ==
LOC: ER 10:55 → 6 SOUTH 12:15
PROVIDERS: ADMIT Internal Medicine; ATTEND Internal Medicine
DX: R53.1 Weakness (principal); I10 Essential (primary) hypertension; F41.1 Generalized anxiety disorder; E78.5 Hyperlipidemia, unspecified; E78.00 Pure hypercholesterolemia, unspecified; Z86.79 Personal history of other diseases of the circulatory system; Z86.73 Personal history of transient ischemic attack (TIA), and cerebral infarction without residual deficits; Z82.49 Family history of ischemic heart disease and other diseases of the circulatory system; Z83.3 Family history of diabetes mellitus
CPT/HCPCS: 36415; 70450; 70544; 70551; 80048; 80076; 82962; 85027; 85384; 85610; 85730; 93005; 95816; 96361; 96374; 96375; 97161; 99285; G0378; J2060; J2405; J7030; G0379

== ENCOUNTER 2019-04-02 10:05 | Emergency (ER) | payer MEDICAID, MEDICARE ==
[~2019-04-02] VITALS: Ht 157.5 cm; Wt 69.5 kg
[~2019-04-02 10:05] MED LIST changes: +ASPI-482 PO; +CLON0.1T TOP; +CLON0.5T11 PO; -CLON0.5T3 PO; +CLON1PAT2 TD; +FLUO20CA8 PO; +LISI10TA2 PO; +TOPI25TA52 PO
[2019-04-02 10:56] LABS: BASO % 0 % (0-3); EOS # 0.2 x10^3/uL (0.0-0.7); EOS % 3 % (0-3); HEMATOCRIT 23.8 % (36.0-47.0); HEMOGLOBIN 7.5 g/dL (12.0-15.5); LYMPH # 1.6 x10^3/uL (1.0-4.8); LYMPH % 32 % (24-48); MEAN CORPUSCULAR HEMOGLOBIN 21 pg (25-35); MEAN CORPUSCULAR HGB CONC 31 g/dL (31-37); MEAN CORPUSCULAR VOLUME 65 fL (79-100); MONO # 0.3 x10^3/uL (0.0-1.1); MONO % 7 % (0-9); NEUT # 2.8 x10^3/uL (1.8-7.7); NEUT % 57 % (31-73); PLATELET COUNT 502 x10^3/uL (140-400); RED BLOOD COUNT 3.64 x10^6/uL (3.50-5.40); RED CELL DISTRIBUTION WIDTH 17.7 % (11.5-14.5); WHITE BLOOD COUNT 4.9 x10^3/uL (4.0-11.0)
[2019-04-02] MEDS ORDERED: fentaNYL PF VIAL 100 MCG/2 ML VIAL IV ONE (11:00)
[2019-04-02 11:03] LABS: AMPHETAMINE/METHAMPHETAMINE NEG (NEG); BARBITURATES NEG (NEG); BENZODIAZEPINES NEG (NEG); CANNABINOIDS NEG (NEG); COCAINE NEG (NEG); METHADONE NEG (NEG); OPIATES NEG (NEG); PHENCYCLIDINE NEG (NEG)
[2019-04-02 11:10] LABS: CALCIUM 8.5 mg/dL (8.5-10.1); CREATININE 0.8 mg/dL (0.6-1.0); GFR 94.3; POTASSIUM 3.6 mmol/L (3.5-5.1)
--- NOTE | 2019-04-02 11:11 | RAD ---
CT Head W/O Contrast: History: Blurred vision Comparison: February 18, 2017 Axial images were obtained without contrast. 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 There is also beam [place] artifact from prior coiling of the [place]. The remaining jones and white matter appears normal and symmetrical for the patients age. There is no mass effect, extraaxial fluid collections or hydrocephalus. There is no gross bleed. There is no focal loss of jones-white matter distinction to suggest acute ischemia, i.e. stroke. Impression: No acute findings. PQRS Compliance Statement: One or more of the following individualized dose reduction techniques were utilized for this examination: 1. Automated exposure control 2. Adjustment of the mA and/or kV according to patient size 3. Use of iterative reconstruction technique Electronically signed by: Presley Joshi III, MD (04/02/2019 11:08 AM) [facility]
[2019-04-02 11:15] LABS: ALBUMIN 3.2 g/dL (3.4-5.0); ALBUMIN/GLOBULIN RATIO 0.8 (1.0-1.7); MAGNESIUM 1.7 mg/dL (1.8-2.4); TOTAL BILIRUBIN 0.2 mg/dL (0.2-1.0); TOTAL PROTEIN 7.1 g/dL (6.4-8.2)
--- NOTE | 2019-04-02 11:20 | RAD ---
EXAM: Chest, 2 views. HISTORY: Edema. COMPARISON: 06/27/2014. FINDINGS: 2 views of the chest are obtained. There is no infiltrate, pleural effusion or pneumothorax. The heart is normal in size. IMPRESSION: No acute pulmonary finding. Electronically signed by: Cherelle Cochran MD (04/02/2019 11:17 AM) [facility]
--- NOTE | 2019-04-02 11:59 | EKG ---
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 Electronically Signed On 04-05-2019 10:07:49 CDT by Odin Bagley
[2019-04-02 12:00] LABS: ANISOCYTOSIS SLIGHT
[2019-04-02 12:01] LABS: PLT ESTIMATE INCREASED (ADEQUATE); POLYCHROMASIA SLIGHT
[2019-04-02 12:18] VITALS: BP 99/62
[2019-04-02] MEDS ORDERED: HYDR-3164 PO (12:34)
--- NOTE | 2019-04-02 12:34 | PHYS DOC ---
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 Patient complaining of bilateral facial edema for almost one week without erythema or rash or pain and complaining of left eye intermittent blurred vision since yesterday with left-sided headache as a constant aching and throbbing pain and rated her pain 7/10. Patient complaining of swelling of hands and legs that improved. Patient complaining of generalized weakness and tiredness. Patient denies chest pain, fever and chills, , focal neuro deficit. Review of Systems Review of Systems Constitutional: Denies fever or chills [] Eyes: Denies redness, or eye pain, reports blurred vision. HENT: Denies nasal congestion or sore throat [] Respiratory: Denies cough or shortness of breath [] Cardiovascular: No additional information not addressed in HPI [] GI: Denies abdominal pain, nausea, vomiting, bloody stools or diarrhea [] : Denies dysuria or hematuria [] Musculoskeletal: Denies back pain or joint pain [] Integument: Denies rash or skin lesions [] Neurologic: Reports headache, focal weakness or sensory changes [] Endocrine: Denies polyuria or polydipsia [] All other systems were reviewed and found to be within normal limits, except as documented in this note. Current Medications Current Medications Current Medications Medications (Trade) Dose Ordered Sig/[facility] Start Time Stop Time Status Last Admin Dose Admin Fentanyl Citrate (Fentanyl 2ml Vial) 50 mcg 1X ONCE 04/02/19 11:00 04/02/19 11:01 DC 04/02/19 11:12 50 MCG Allergies Allergies Allergies Coded Allergies Type Severity Reaction Last Updated Verified metoclopramide Allergy Severe Anaphylaxis 06/11/14 No morphine Allergy Intermediate itching 06/11/14 Yes Physical Exam Physical Exam Constitutional: Well developed, well nourished, mild distress, non-toxic appearance, mild pallor. [] HENT: Normocephalic, atraumatic, no obvious facial edema. Eyes: PERRLA, EOMI, conjunctiva normal, no discharge. [] Neck: Normal range of motion, no tenderness, supple, no stridor. [] Cardiovascular:Heart rate regular rhythm, no murmur [] Lungs & Thorax: Bilateral breath sounds clear to auscultation [] Abdomen: Bowel sounds normal, soft, no tenderness, no masses, no pulsatile masses. [] Skin: Warm, dry, no erythema, no rash. [] Back: No tenderness, no CVA tenderness. [] Extremities: No tenderness, no cyanosis, no clubbing, ROM intact, no upper and lower extremity edema. [] Neurologic: Alert and oriented X 3, no focal deficits noted. [] Psychologic: Affect normal, judgement normal, mood normal. [] Current Patient Data Vital Signs Vital Signs Date Time Temp Pulse Resp B/P (MAP) Pulse Ox O2 Delivery O2 Flow Rate FiO2 04/02/19 12:18 95 04/02/19 10:28 99.4 99 18 137/74 (95) Room Air 99.4 Lab Values Laboratory Tests Test 04/02/19 10:24 04/02/19 10:25 04/02/19 10:45 Urine Opiates Screen Neg (NEG) Urine Methadone Screen Neg (NEG) Urine Barbiturates Neg (NEG) Urine Phencyclidine Screen Neg (NEG) Urine Amphetamine/Methamphetamine Neg (NEG) Urine Benzodiazepines Screen Neg (NEG) Urine Cocaine Screen Neg (NEG) Urine Cannabinoids Screen Neg (NEG) Urine Ethyl Alcohol Neg (NEG) POC Urine HCG, Qualitative Hcg negative (Negative) White Blood Count 4.9 x10^3/uL (4.0-11.0) Red Blood Count 3.64 x10^6/uL (3.50-5.40) Hemoglobin 7.5 g/dL (12.0-15.5) L Hematocrit 23.8 % (36.0-47.0) L Mean Corpuscular Volume 65 fL (79-100) L Mean Corpuscular Hemoglobin 21 pg (25-35) L Mean Corpuscular Hemoglobin Concent 31 g/dL (31-37) Red Cell Distribution Width 17.7 % (11.5-14.5) H Platelet Count 502 x10^3/uL (140-400) H Neutrophils (%) (Auto) 57 % (31-73) Lymphocytes (%) (Auto) 32 % (24-48) Monocytes (%) (Auto) 7 % (0-9) Eosinophils (%) (Auto) 3 % (0-3) Basophils (%) (Auto) 0 % (0-3) Neutrophils # (Auto) 2.8 x10^3/uL (1.8-7.7) Lymphocytes # (Auto) 1.6 x10^3/uL (1.0-4.8) Monocytes # (Auto) 0.3 x10^3/uL (0.0-1.1) Eosinophils # (Auto) 0.2 x10^3/uL (0.0-0.7) Basophils # (Auto) 0.0 x10^3/uL (0.0-0.2) Platelet Estimate Increased (ADEQUATE) Polychromasia Slight Anisocytosis Slight Sodium Level 139 mmol/L (136-145) Potassium Level 3.6 mmol/L (3.5-5.1) Chloride Level 104 mmol/L (98-107) Carbon Dioxide Level 24 mmol/L (21-32) Anion Gap 11 (6-14) Blood Urea Nitrogen 12 mg/dL (7-20) Creatinine 0.8 mg/dL (0.6-1.0) Estimated GFR (Cockcroft-Gault) 94.3 BUN/Creatinine Ratio 15 (6-20) Glucose Level 94 mg/dL (70-99) Calcium Level 8.5 mg/dL (8.5-10.1) Magnesium Level 1.7 mg/dL (1.8-2.4) L Total Bilirubin 0.2 mg/dL (0.2-1.0) Aspartate Amino Transferase (AST) 18 U/L (15-37) Alanine Aminotransferase (ALT) 27 U/L (14-59) Alkaline Phosphatase 51 U/L (46-116) Creatine Kinase 72 U/L (26-192) Troponin I Quantitative < 0.017 ng/mL (0.000-0.055) EC-Mgl-B-Type Natriuretic Peptide 305 pg/mL (0-124) H Total Protein 7.1 g/dL (6.4-8.2) Albumin 3.2 g/dL (3.4-5.0) L Albumin/Globulin Ratio 0.8 (1.0-1.7) L Laboratory Tests 04/02/19 10:45 Laboratory Tests 04/02/19 10:45 EKG EKG [] Radiology/Procedures Radiology/Procedures [][address] [address] IMAGING REPORT Signed PATIENT: JAQUAN PRYOR ACCOUNT: [id number] : 1975 LOCATION: ER AGE: 44 SEX: F EXAM STATUS: REG ER ORD. PHYSICIAN: JAIME BLEDSOE MD REASON: edema PROCEDURE: CHEST PA & LATERAL EXAM: Chest, 2 views. HISTORY: Edema. COMPARISON: 06/27/2014. FINDINGS: 2 views of the chest are obtained. There is no infiltrate, pleural effusion or pneumothorax. The heart is normal in size. IMPRESSION: No acute pulmonary finding. Electronically signed by: Cherelle Ayon MD (04/02/2019 11:17 AM) [place] [id number] DICTATED and SIGNED BY: CHERELLE AYON MD DATE: 04/02/19 [id number] [place] [address] IMAGING REPORT Signed PATIENT: JAQUAN PRYOR ACCOUNT: [id number] : 1975 LOCATION: ER AGE: 44 SEX: F EXAM STATUS: REG ER ORD. PHYSICIAN: JAIME BLEDSOE MD REASON: blurred vision PROCEDURE: CT HEAD WO CONTRAST CT Head W/O Contrast: History: Blurred vision Comparison: February 18, 2017 Axial images were obtained without contrast. 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 There is also beam [place] artifact from prior coiling of the te[place] of [place]. The remaining jones and white matter appears normal and symmetrical for the patients age. There is no mass effect, extraaxial fluid collections or hydrocephalus. There is no gross bleed. There is no focal loss of jones-white matter distinction to suggest acute ischemia, i.e. stroke. Impression: No acute findings. PQRS Compliance Statement: One or more of the following individualized dose reduction techniques were utilized for this examination: 1. Automated exposure control 2. Adjustment of the mA and/or kV according to patient size 3. Use of iterative reconstruction technique Electronically signed by: Nicholas Nicolas III, MD (04/02/2019 11:08 AM) [facility] DICTATED and SIGNED BY: NICHOLAS NICOLAS III, MD DATE: 04/02/19 1104 Course & Med Decision Making Course & Med Decision Making Pertinent Labs and Imaging studies reviewed. (See chart for details) Evaluation of patient in ER showed 44-year-old female patient with multiple medical complaints including headache, blurred vision, facial edema, generalized weakness, hands and feet edema. Patient had unremarkable physical exam except for mild pallor. Patient felt better with pain medication in ER. Showed hemoglobin of 7.5 and patient stated she had heavy menstruation for a while and sometimes she gets two menstruation in 1 month. Patient was advised to follow- up with her STAGE TECHNICIAN and she already made an appointment with her STAGE TECHNICIAN for tomorrow. I've spoken with the patient and/or caregivers. I've explained the patient's condition, diagnosis and treatment plan based on information available to me at this time. I've answered the patient's and/or caregivers questions and addressed any concerns. The patient and/or caregivers have a good understanding the patient's diagnosis, condition and treatment plan as can be expected at this point. Vital signs have been stabilized. The patient's condition is stable for discharge from the emergency department. The patient will pursue further outpatient evaluation with her primary care provider or other designated consulting physician as outlined in the discharge instructions. Patient and/or caregivers are agreeable to this plan of care and follow-up instructions have been explained in detail. The patient and/or caregivers have received these instructions in written format and expressed understanding of these discharge instructions. The patient and her caregivers are aware that if any significant change in condition or worsening of symptoms should prompt him to immediately return to this of the closest emergency department. If an emergent department is not readily available I would encourage him to call 911. Niesha Disclaimer Dragon Disclaimer This electronic medical record was generated, in whole or in part, using a voice recognition dictation system. Departure Departure Impression: Primary Impression: Anemia Additional Impressions: Menometrorrhagia Headache Disposition: HOME, SELF-CARE Referrals: MELVA LACY (PCP) MAHIN AGUILAR MD Patient Instructions: Abnormal Uterine Bleeding, Anemia, FAQs, General Headache Without Cause Additional Instructions: Drink plenty of liquids Follow-up with your primary care physician in 3-5 days Return to ER if not getting better Follow-up with on-call STAGE TECHNICIAN or your STAGE TECHNICIAN in 2 or 3 days for evaluation and treatment of abnormal vaginal bleeding Take [id number] iron pills 3 times a day with food Scripts Hydrocodone/Apap 5-325 (NORCO 5-325 TABLET) 1 Each Tablet 1 TAB PO PRN Q6HRS PRN for PAIN, #10 TAB 0 Refills Prov: JAIME BLEDSOE MD 04/02/19 Problem Qualifiers Primary Impression: Anemia Anemia type: unspecified type Qualified Codes: D64.9 - Anemia, unspecified Additional Impressions: Headache Headache type: unspecified Headache chronicity pattern: unspecified pat tern Intractability: not intractable Qualified Codes: R51 - Headache JAIME BLEDSOE MD Apr 02, 2019 12:34
== END 2019-04-02 12:51 | disposition home or self-care (01) ==
LOC: ER 10:05
DX: D64.9 Anemia, unspecified (principal); N92.1 Excessive and frequent menstruation with irregular cycle; R51 Headache; E78.00 Pure hypercholesterolemia, unspecified; I10 Essential (primary) hypertension; Z86.73 Personal history of transient ischemic attack (TIA), and cerebral infarction without residual deficits; Z98.51 Tubal ligation status; Z88.5 Allergy status to narcotic agent; Z88.8 Allergy status to other drugs, medicaments and biological substances
CPT/HCPCS: 36415; 70450; 71046; 80053; 80307; 81025; 82550; 83735; 83880; 84484; 85025; 93005; 96374; 99285; J3010

== ENCOUNTER 2021-05-27 08:42 | Emergency (ER) | payer MEDICAID, MEDICARE ==
[~2021-05-27] VITALS: Ht 157.5 cm; Wt 62.0 kg
[~2021-05-27 08:42] MED LIST changes: +CLON-77 PO; -CLON0.5T11 PO; -CLON1PAT2 TD; +CLON1PAT6 TD; +FLUO20CA20 PO; -FLUO20CA8 PO; +HYDR-3164 PO; +LISI10TA16 PO; -LISI10TA2 PO
--- NOTE | 2021-05-27 09:15 | ED.ADGEN ---
Past Medical History Past Medical History: Anxiety, CVA, High Cholesterol, Hypertension, Seizure Additional Past Medical Histor: blood clot in brain with Past Surgical History: Other Additional Past Surgical Histo: Blood clot removed from brain 18 years ago Smoking Status: Never Smoker Alcohol Use: None Drug Use: None General Adult EDM: Chief Complaint: FEVER HPI: HPI: Patient is a 46-year-old female who arrives ambulatory to the emergency department complaining of 3 days of waking with fevers. Patient reports most recently she woke with a fever of 102 today. Patient states she did take ibuprofen prior to arrival and is now afebrile. Patient states despite having fevers she has not had any symptoms other than fatigue otherwise. Patient reports that she did have Covid 6 months previously and has yet to be vaccinated. Patient states despite her symptoms she has not had any known sick contacts otherwise. She further states she is not had any cough, congestion or shortness of air. Moreover she denies any chest pain, headaches or neck stiffness. She is awake, alert and nontoxic-appearing. Review of Systems: Review of Systems: Constitutional: Reports fever and fatigue. [] Eyes: Denies change in visual acuity. [] HENT: Denies nasal congestion or sore throat. [] Respiratory: Denies cough or shortness of breath. [] Cardiovascular: Denies chest pain or edema. [] GI: Denies abdominal pain, nausea, vomiting, bloody stools or diarrhea. [] : Denies dysuria. [] Musculoskeletal: Denies back pain or joint pain. [] Integument: Denies rash. [] Neurologic: Denies headache, focal weakness or sensory changes. [] Endocrine: Denies polyuria or polydipsia. [] Lymphatic: Denies swollen glands. [] Psychiatric: Denies depression or anxiety. [] Allergies: Allergies: Allergies Coded Allergies Type Severity Reaction Last Updated Verified metoclopramide Allergy Severe Anaphylaxis 06/11/14 No morphine Allergy Intermediate itching 06/11/14 Yes Physical Exam: PE: Constitutional: Well developed, well nourished, no acute distress, non-toxic appearance. [] HENT: Normocephalic, atraumatic, bilateral external ears normal, oropharynx moist, no oral exudates, nose normal. [] Eyes: PERRLA, EOMI, conjunctiva normal, no discharge. [] Neck: Normal range of motion, no tenderness, supple, no stridor. [] Cardiovascular:Heart rate regular rhythm, no murmur [] Lungs & Thorax: Bilateral breath sounds clear to auscultation [] Abdomen: Bowel sounds normal, soft, no tenderness, no masses, no pulsatile masses. [] Skin: Warm, dry, no erythema, no rash. [] Back: No tenderness, no CVA tenderness. [] Extremities: No tenderness, no cyanosis, no clubbing, ROM intact, no edema. [] Neurologic: Alert and oriented X 3, normal motor function, normal sensory function, no focal deficits noted. [] Psychologic: Affect normal, judgement normal, mood normal. [] Current Patient Data: Vital Signs: Vital Signs Date Time Temp Pulse Resp B/P (MAP) Pulse Ox O2 Delivery O2 Flow Rate FiO2 05/27/21 09:16 95 18 119/76 (90) 98 05/27/21 08:50 98.4 98.4 EKG: EKG: [] Heart Score: C/O Chest Pain: N/A Risk Factors: Risk Factors: DM, Current or recent (<one month) smoker, HTN, HLP, family history of CAD, obesity. Risk Scores: Score 0 - 3: 2.5% MACE over next 6 weeks - Discharge Home Score 4 - 6: 20.3% MACE over next 6 weeks - Admit for Clinical Observation Score 7 - 10: 72.7% MACE over next 6 weeks - Early Invasive Strategies Radiology/Procedures: Radiology/Procedures: [] Course & Med Decision Making: Course & Med Decision Making Pertinent Labs and Imaging studies reviewed. (See chart for details) [] Dragon Disclaimer: Dragon Disclaimer: This electronic medical record was generated, in whole or in part, using a voice recognition dictation system. Departure Departure Impression: Primary Impression: Anxiety about health Additional Impressions: History of fever Person under investigation for COVID-19 Disposition: HOME / SELF CARE / HOMELESS Condition: STABLE Referrals: MELVA LACY (PCP) Patient Instructions: Fever of Unknown Origin, Fever, Adult Additional Instructions: I have asked the patient to quarantine until results from her coronavirus testing are returned. Should she develop any new shortness of air, chest pain or symptoms otherwise, she has been advised to return to the emergency department. Problem Qualifiers FOREST ZAPATA DO May 27, 2021 09:15
[2021-05-27 09:16] VITALS: BP 119/76
--- NOTE | 2021-05-28 09:37 | NUR ---
IP: Attempted to contact pt concerning covid results. No answer, left a voicemail to return the call.
== END 2021-05-27 10:25 | disposition home or self-care (01) ==
LOC: ER 08:42
DX: F41.9 Anxiety disorder, unspecified (principal); Z20.822 Contact with and (suspected) exposure to COVID-19; R50.9 Fever, unspecified; E78.00 Pure hypercholesterolemia, unspecified; I10 Essential (primary) hypertension; Z86.73 Personal history of transient ischemic attack (TIA), and cerebral infarction without residual deficits; Z88.1 Allergy status to other antibiotic agents; Z88.5 Allergy status to narcotic agent
CPT/HCPCS: 87426; 99283; U0003; U0005